=== PATIENT | female | born 1980 | race African-American/Black ===

== ENCOUNTER 2016-10-15 19:48 | Emergency (ER) | payer SELFPAY ==
--- NOTE | 2016-10-15 20:40 | ER Document Report ---
ED General - General Chief Complaint: Facial Droop Stated Complaint: FACIAL PAIN Time Seen by Provider: 10/15/16 20:25 Mode of Arrival: Ambulatory Information source: Patient Notes: This is a 35-year-old female with no medical problems who presents to the emergency room with a left facial droop. The patient states that she noticed some left eye irritation last night. She states she was talking with her friends and they noticed a left facial droop earlier today. Patient denies any arm weakness. She denies any recent febrile illnesses. She denies any camping or tick exposure. She denies any rash. Family history: No history of early strokes, blood clots. Social history: No drugs, patient does smoke 1 pack in 3 days (cigarettes). Medications: None, no control TRAVEL OUTSIDE OF THE [place] IN LAST 30 DAYS: No - HPI Onset: Just prior to arrival Onset/Duration: Sudden Quality of pain: No pain Severity: None Pain Level: Denies Associated symptoms: denies: Chest pain, Fever, Shortness of breath Exacerbated by: Denies Relieved by: Denies Similar symptoms previously: No Recently seen / treated by doctor: No - Related Data Allergies/Adverse Reactions: No Known Allergies Allergy (Verified 10/15/16 19:53) Past Medical History - General Information source: Patient - Social History Smoking Status: Current Every Day Smoker Cigarette use (# per day): Yes - Half pack per day Chew tobacco use (# tins/day): No Frequency of alcohol use: None Drug Abuse: None Lives with: Family Family History: Reviewed & Not Pertinent Patient has suicidal ideation: No Patient has homicidal ideation: No - Medical History Medical History: Negative Renal/ Medical History: Denies: Hx Peritoneal Dialysis Surgical Hx: Negative Review of Systems - Review of Systems Constitutional: denies: Chills, Fever EENT: No symptoms reported Cardiovascular: No symptoms reported Respiratory: No symptoms reported Gastrointestinal: No symptoms reported Genitourinary: No symptoms reported Female Genitourinary: No symptoms reported Musculoskeletal: No symptoms reported Skin: No symptoms reported Hematologic/Lymphatic: No symptoms reported Neurological/Psychological: See HPI Physical Exam - Vital signs Vitals: Temp Pulse Resp BP Pulse Ox 99.0 F 103 H 20 168/100 H 99 10/15/16 19:53 10/15/16 19:53 10/15/16 19:53 10/15/16 19:53 10/15/16 19:53 Notes: Physical exam: GENERAL: 35-year-old female, alert and oriented 3, no acute distress HEAD: Atraumatic, normocephalic. EYES: Pupils equal round and reactive to light, extraocular movements intact, sclera anicteric, conjunctiva are normal. ENT: TMs normal, nares patent, oropharynx clear without exudates. Moist mucous membranes. NECK: Normal range of motion, supple without lymphadenopathy or JVD. LUNGS: Breath sounds clear to auscultation bilaterally and equal. No wheezes rales or rhonchi. HEART: Regular rate and rhythm without murmurs, rubs or gallops. ABDOMEN: Soft, normoactive bowel sounds. No tenderness to palpation. No guarding, no rebound. No masses appreciated. EXTREMITIES: Normal range of motion, no pitting or edema. No clubbing or cyanosis. NEUROLOGICAL: Patient does have left facial weakness that appears to involve the entire left side of her face. No difficulty swallowing. Motor upper extremities 5/5, motor lower extremities 5/5, cerebellar (finger to nose) good, reflexes symmetrical, plantars downgoing, Romberg negative. PSYCH: Normal mood, normal affect. SKIN: Warm, Dry, normal turgor, no rashes or lesions noted. Course - Re-evaluation Re-evalutation: 10/15/16 20:42 Patient symptoms I believe are peripheral. However, her blood pressure is significantly elevated and she does smoke cigarettes. We will obtain an MRI of the brain. Otherwise, I sent a Lyme titer, and I will put her on prednisone and acyclovir. - Vital Signs Vital signs: Temp Pulse Resp BP Pulse Ox 98.4 F 96 19 142/88 H 97 10/15/16 22:47 10/15/16 22:47 10/15/16 22:47 10/15/16 22:47 10/15/16 22:47 Discharge - Discharge Clinical Impression: Ferrell's palsy Condition: Stable Disposition: HOME, SELF-CARE Instructions: Ferrell's Palsy ([facility]) Additional Instructions: Recommendations: As we discussed, your blood pressure was elevated today. I recommend that you have it rechecked in the next week or 2. The brain MRI was good: There is no evidence of strokes. Your test was negative See the instruction sheet on Ferrell's palsy. I prescribed 2 medicines: 1 is a steroid, one is an antiviral medicine. We did send a Lyme titer (a blood test to detect any exposure to Lyme's disease) : We will call you if the titer is positive. Try and keep the left eye moist: Use moisturizer/lubricant I left the number for the [facility]: This is a free medical clinic affiliated with the [facility]. You can have your blood pressure rechecked here. Return to the emergency room for any headache, worsening weakness of the face, any arm weakness or any concerns or getting worse. Prescriptions: Acyclovir [Acyclovir 400 mg Tablet] 400 mg PO 5XD #35 tablet Prednisone [Deltasone 20 mg Tablet] 3 tab PO DAILY 7 Days #21 tablet Forms: Elevated Blood Pressure Referrals: [facility] [Provider Group] - Follow up as needed (This is the number of the free medical clinic affiliated with the [facility])
[2016-10-15] MEDS ORDERED: LORAZEPAM 1 MG TABLET PO ONE (20:57)
--- NOTE | 2016-10-15 21:55 | RADIOLOGY REPORT (SQ) ---
EXAM DESCRIPTION: MRI HEAD WITHOUT COMPLETED DATE/TIME: 10/15/2016 9:28 pm REASON FOR STUDY: left facial weak, r/o cva COMPARISON: None. TECHNIQUE: Multiplanar imaging includes non-contrasted T1, T2, FLAIR, and diffusion with ADC map seq uences. Images stored on PACS. LIMITATIONS: None. FINDINGS: ANATOMY: No anomalies. Normal vascular flow voids. Pituitary fossa normal. CSF SPACES: Normal in size and contour. No hemorrhage. CEREBRUM: Sulci and gyri normal in size and contour. Normal white matter signal on FLAIR imaging. No evidence of hemorrhage, mass, or extraaxial fluid collection. POSTERIOR FOSSA: No signal alteration. No hemorrhage. No edema, masses or mass effect. Internal jose m tory canals, cerebello-pontine angles, mastoids normal. DIFFUSION IMAGING: Negative for acute or sub-acute infarction. ORBITS: No masses. Globes normal. PARANASAL SINUSES: Left maxillary sinus mucosal thickening. OTHER: No other significant finding. IMPRESSION: Negative for acute or sub-acute infarction.Age-appropriate exam of the brain.Left maxill aleisha sinus mucosal thickening. EVIDENCE OF ACUTE STROKE: NO. TECHNICAL DOCUMENTATION: JOB ID: [id number] [employer]- All Rights Reserved
[2016-10-15 23:29] VITALS: BP 142/88
[2016-10-19 12:52] LABS: LYME DISEASE IGG AND IGM AB <0.91 ISR (0.00-0.90)
== END 2016-10-15 22:45 | disposition home or self-care (01) ==
LOC: ER 19:48
DX: G51.0 Bell's palsy (principal); R29.810 Facial weakness; F17.210 Nicotine dependence, cigarettes, uncomplicated
CPT/HCPCS: 36415; 70551; 84702; 86617; 86618; 99284

== ENCOUNTER 2017-09-28 20:37 | Inpatient (IN) | payer SELFPAY ==
[2017-09-28] MEDS ORDERED: NORMAL SALINE 1000 ML 1,000 ML IV ONE ×4 (21:12→23:54)
[2017-09-28] MEDS ORDERED: MORPHINE SULFATE 10 MG/ML INJ IV ONE (21:14)
[2017-09-28] MEDS ORDERED: ONDANSETRON HCL INJ/PF 4 MG/2 ML SDV IV ONE (21:14)
[2017-09-28 21:37] LABS: VENOUS BLOOD BASE EXCESS -0.3 mmol/L; VENOUS BLOOD HCO3 23.8 mmol/L (20-32); VENOUS BLOOD PCO2 37.3 mmHg (35-63); VENOUS BLOOD PH 7.42 (7.30-7.42)
[2017-09-28 21:42] LABS: INTERNATIONAL RATION (INR) 1.32
[2017-09-28 21:43] LABS: PARTIAL THROMBOPLASTIN TIME 35.1 SEC (23.5-35.8)
[2017-09-28 21:45] LABS: HEMATOCRIT 36.9 % (36.0-47.0); MEAN CORPUSCULAR HEMOGLOBIN 23.8 pg (27.0-33.4); MEAN CORPUSCULAR HGB CONC 32.4 g/dL (32.0-36.0); MEAN CORPUSCULAR VOLUME 73 fl (80-97); PLATELET COUNT 256 10^3/uL (150-450); RED BLOOD COUNT 5.03 10^6/uL (3.72-5.28); RED CELL DISTRIBUTION WIDTH 17.5 % (11.5-14.0); WHITE BLOOD COUNT 20.8 10^3/uL (4.0-10.5)
--- NOTE | 2017-09-28 21:47 | EKG REPORT ---
SEVERITY:- BORDERLINE ECG - SINUS TACHYCARDIA INFERIOR Q WAVES, PROBABLY NORMAL VARIATION : Confirmed by: Melba Rosado 28-Sep-2017 21:46:00
[2017-09-28 21:55] LABS: APPEARANCE,URINE CLOUDY; BILIRUBIN,URINE NEGATIVE (NEGATIVE); CALCIUM OXALATE CRYSTALS,URINE FEW /HPF; GLUCOSE, URINE >=500 mg/dL (NEGATIVE); KETONES,URINE 20 mg/dL (NEGATIVE); LEUKOCYTE ESTERASE,URINE LARGE (NEGATIVE); NITRITE,URINE NEGATIVE (NEGATIVE); PROTEIN,URINE 100 mg/dL (NEGATIVE); URINE SPECIFIC GRAVITY 1.021; UROBILINOGEN,URINE NEGATIVE mg/dL (<2.0)
[2017-09-28 21:57] LABS: COLOR,URINE YELLOW
[2017-09-28 22:02] LABS: ALANINE AMINOTRANSFERASE 28 U/L (9-52); ALBUMIN 3.4 g/dL (3.5-5.0); ALKALINE PHOSPHATASE 100 U/L (38-126); ANION GAP 16 (5-19); ASPARTATE AMINO TRANSFERASE 28 U/L (14-36); BILIRUBIN,DIRECT 0.7 mg/dL (0.0-0.4); BILIRUBIN,TOTAL 1.1 mg/dL (0.2-1.3); BLOOD UREA NITROGEN 14 mg/dL (7-20); CALCIUM 8.8 mg/dL (8.4-10.2); CARBON DIOXIDE 22 mmol/L (22-30); CHLORIDE 92 mmol/L (98-107); GLUCOSE 322 mg/dL (75-110); POTASSIUM 4.2 mmol/L (3.6-5.0); TOTAL PROTEIN 6.8 g/dL (6.3-8.2)
[2017-09-28 22:03] LABS: LIPASE < 10.0 U/L (23-300)
[2017-09-28 22:21] LABS: ABSOLUTE MONOCYTES # (MANUAL) 0.8 10^3/uL (0.1-1.4); ABSOLUTE NEUTROPHILS# (MANUAL) 18.9 10^3/uL (1.7-8.2); BASOPHILS % (MANUAL) 0 % (0-2); EOSINOPHILS % (MANUAL) 0 % (0-6); LYMPHOCYTES % (MANUAL) 4 % (13-45); MONOCYTES % (MANUAL) 4 % (3-13); SEGMENTED NEUTROPHILS % (MAN) 80 % (42-78); TOTAL CELLS COUNTED 100
[2017-09-28 22:22] LABS: PLATELET COMMENT ADEQUATE; TOXIC GRANULATION 2+; TOXIC VACUOLATION PRESENT
[2017-09-28 22:24] LABS: BAND NEUTROPHILS % (MANUAL) 11 % (3-5)
[2017-09-28] MEDS ORDERED: PIPERACILLIN/TAZOBACTAM 3.375 GM VIAL IV ONE (22:28)
--- NOTE | 2017-09-28 23:05 | RADIOLOGY REPORT (SQ) ---
EXAM DESCRIPTION: CT ABDOMEN PELVIS WITH IV CONTRAST COMPLETED DATE/TME: 09/28/2017 22:15 CLINICAL HISTORY: 36 years Female, Abdominal Pain Comparison: None. Technique: IV contrast. Coronal and sagittal reformat. This exam was performed according to our departmental dose-optimization program, which includes automated exposure control, adjustment of the mA and/or kV according to patient size and/or use of iterative reconstruction technique. [facility]: Dose Right [facility]: CareDose [facility]: Dose Right [facility]: Teradose 4D [facility]: [employer] LIMITATIONS: None Findings: 0.4 x 0.3 cm right distal ureteral stone within 3 cm of the right ureterovesicular junction, mild right hydronephrosis/hydroureter. Patchy enhancement of the right renal parenchyma, mild right perinephric fat stranding, small of fluid extends inferiorly along Gerota's fascia. Mild retroperitoneal lymphadenopathy. Normal appendix. Mild hepatic steatosis. Fluid-filled right colon, nonspecific. Inferior thorax, liver, gallbladder, pancreas, spleen, adrenals, left kidney, gastrointestinal tract, pelvic organs, vasculature, and musculoskeleton appear otherwise unremarkable. IMPRESSION: 1. A 0.4 cm right distal ureteral stone with low-grade obstruction. 2. Right pyelonephritis pattern. Differential diagnosis includes malignancy such as lymphoma. Recommend contrast renal CT surveillance including at 7-12 weeks following initiation of clinically warranted therapy.
[2017-09-28] MEDS ORDERED: PIPERACILLIN/TAZOBACTAM 4.5 GM VIAL IV ONE (23:36)
--- NOTE | 2017-09-29 00:13 | ER Document Report ---
ED GI/ - General Chief Complaint: Abdominal Pain Stated Complaint: STOMACH PAIN Time Seen by Provider: 09/28/17 21:06 Mode of Arrival: Ambulatory Information source: Patient TRAVEL OUTSIDE OF THE [place] IN LAST 30 DAYS: No - HPI Patient complains to provider of: Abdominal pain, Flank pain, Vomiting Onset: This afternoon Timing/Duration: Sudden Quality of pain: Sharp Severity at maximum: Severe Severity in ED: Severe Pain Level: 5 Location: Right flank Vaginal bleeding (Compared to normal period): None OB ultrasound done: No vitamins taken: No Sexual history: Active Associated symptoms: Nausea, Vomiting Exacerbated by: Denies Relieved by: Denies Similar symptoms previously: No Recently seen / treated by doctor: No - Related Data Allergies/Adverse Reactions: No Known Allergies Allergy (Verified 10/15/16 19:53) Past Medical History - Social History Smoking Status: Current Every Day Smoker Frequency of alcohol use: Social Drug Abuse: None Family History: Reviewed & Not Pertinent Patient has suicidal ideation: No Patient has homicidal ideation: No - Past Medical History Cardiac Medical History: Reports: Hx Hypertension - takes no meds Renal/ Medical History: Denies: Hx Peritoneal Dialysis Review of Systems - Review of Systems Constitutional: Chills, Fever EENT: No symptoms reported Cardiovascular: No symptoms reported Respiratory: No symptoms reported Gastrointestinal: Abdominal pain, Nausea, Vomiting Genitourinary: No symptoms reported Female Genitourinary: No symptoms reported Musculoskeletal: No symptoms reported Skin: No symptoms reported Hematologic/Lymphatic: No symptoms reported Neurological/Psychological: No symptoms reported -: Yes All other systems reviewed and negative Physical Exam - Vital signs Vitals: Temp Pulse Resp BP Pulse Ox 99.9 F 144 H 20 140/83 H 97 09/28/17 20:45 09/28/17 20:45 09/28/17 20:45 09/28/17 20:45 09/28/17 20:45 - General General appearance: Alert In distress: Moderate - HEENT Head: Normocephalic, Atraumatic Eyes: Normal Pupils: PERRL - Respiratory Respiratory status: No respiratory distress Chest status: Nontender Breath sounds: Normal Chest palpation: Normal - Cardiovascular Rhythm: Tachycardia Heart sounds: Normal auscultation Murmur: No - Abdominal Inspection: Normal Distension: No distension Bowel sounds: Normal Tenderness: Tender, Guarding. No: Rebound Organomegaly: No organomegaly - Back Back: Normal, Nontender - Extremities General upper extremity: Normal inspection, Nontender, Normal color, Normal ROM , Normal temperature General lower extremity: Normal inspection, Nontender, Normal color, Normal ROM , Normal temperature, Normal weight bearing. No: Mena's sign - Neurological Neuro grossly intact: Yes Cognition: Normal Orientation: AAOx4 Papa Coma Scale Eye Opening: Spontaneous Papa Coma Scale Verbal: Oriented [place] Coma Scale Motor: Obeys Commands [place] Coma Scale Total: 15 Speech: Normal Motor strength normal: LUE, RUE, LLE, RLE Sensory: Normal - Psychological Associated symptoms: Normal affect - Skin Skin Temperature: Warm Skin Moisture: Dry Skin Color: Normal Course - Vital Signs Vital signs: Temp Pulse Resp BP Pulse Ox 100.9 F H 144 H 22 H 139/77 H 97 09/28/17 22:32 09/28/17 20:45 09/28/17 23:42 09/28/17 23:42 09/28/17 23:42 - Laboratory Result Diagrams: 09/28/17 21:08 09/28/17 21:08 Laboratory results interpreted by me: 09/28/17 09/28/17 09/28/17 21:08 21:08 21:08 WBC 20.8 H MCV 73 L MCH 23.8 L RDW 17.5 H Seg Neuts % (Manual) 80 H Band Neutrophils % 11 H Lymphocytes % (Manual) 4 L Abs Neuts (Manual) 18.9 H PT 17.0 H Sodium 130.0 L Chloride 92 L Glucose 322 H Lactic Acid Direct Bilirubin 0.7 H Albumin 3.4 L Lipase < 10.0 L Urine Protein Urine Glucose (UA) Urine Ketones Urine Blood Ur Leukocyte Esterase 09/28/17 09/28/17 21:08 21:32 WBC MCV MCH RDW Seg Neuts % (Manual) Band Neutrophils % Lymphocytes % (Manual) Abs Neuts (Manual) PT Sodium Chloride Glucose Lactic Acid 2.6 H Direct Bilirubin Albumin Lipase Urine Protein 100 H Urine Glucose (UA) >=500 H Urine Ketones 20 H Urine Blood MODERATE H Ur Leukocyte Esterase LARGE H - Diagnostic Test Radiology reviewed: Image reviewed, Reports reviewed - Transfer of Care Notes: 09/29/17 00:11 I consulted the urologist resolution rep Dr Sandra Le. He wants patient admitted by the hospitalist he will be taking the patient to the OR immediately for surgical intervention. Patient care was discussed with the hospitalist resolution rep Dr Silva. He will admit patient for further evaluation and management. Critical Care Note - Critical Care Note Total time excluding time spent on procedures (mins): 55 Discharge - Discharge Clinical Impression: Kidney stone on right side, Flank pain, acute, Tachycardia Sepsis Qualifiers: Sepsis type: sepsis due to unspecified organism Qualified Code(s): A41.9 - Sepsis, unspecified organism UTI (urinary tract infection) Qualifiers: Urinary tract infection type: acute cystitis Hematuria presence: without hematuria Qualified Code(s): N30.00 - Acute cystitis without hematuria Leukocytosis Qualifiers: Leukocytosis type: bandemia Qualified Code(s): D72.825 - Bandemia Nausea and vomiting Qualifiers: Vomiting type: unspecified Vomiting Intractability: intractable Qualified Code( s): R11.2 - Nausea with vomiting, unspecified Fever Qualifiers: Fever type: unspecified Qualified Code(s): R50.9 - Fever, unspecified Disposition: ADMITTED INPATIENT Admitting Provider: Hospitalist Unit Admitted: [facility]
[2017-09-29] MEDS ORDERED: ACETAMINOPHEN 650 MG SUPP.RECT PR ONE (00:34)
[2017-09-29] MEDS ORDERED: ACETAMINOPHEN 325 MG SUPP.RECT PR ONE (00:34)
[2017-09-29] MEDS ORDERED: MIDAZOLAM 2 MG/2 ML INJ ONE (00:39)
[2017-09-29] MEDS ORDERED: FENTANYL CITRATE INJ/PF 100 MCG/2 ML AMPUL ONE (00:39)
[2017-09-29] MEDS ORDERED: PROPOFOL INJ 200 MG/20 ML VIAL IV ONE (00:40)
[2017-09-29] MEDS ORDERED: ACETAMINOPHEN 1,000 MG/100 ML RTUPB IV ONE (00:40)
[2017-09-29] MEDS ORDERED: LIDOCAINE 2% INJ-PF (20 MG/ML) 10 ML AMPUL ONE (00:44)
[2017-09-29] MEDS ORDERED: IPRATROPIUM/ALBUTEROL 0.5-2.5 MG/3 ML AMPUL NEB PRN (00:53)
[2017-09-29] MEDS ORDERED: ACETAMINOPHEN 325 MG TABLET PO PRN (00:53)
[2017-09-29] MEDS ORDERED: ONDANSETRON HCL INJ/PF 4 MG/2 ML SDV IV PRN ×2 (00:53→01:46)
[2017-09-29] MEDS ORDERED: CEFTRIAXONE 1 GM/D5W RTU 1 GM/50 ML RTUPB IV SCH ×2 (01:00→18:00)
[2017-09-29] MEDS ORDERED: PROMETHAZINE HCL INJ 25 MG/1 ML VIAL IV PRN ×2 (01:46)
[2017-09-29] MEDS ORDERED: FENTANYL CITRATE INJ/PF 100 MCG/2 ML AMPUL IV PRN ×3 (01:46)
[2017-09-29] MEDS ORDERED: DIPHENHYDRAMINE HCL 50 MG/ML VIAL IV PRN (01:46)
--- NOTE | 2017-09-29 01:46 | Operative Report ---
Operative Report DATE OF SURGERY: 09/29/17 PREOPERATIVE DIAGNOSIS: obstructed right kidney by stone POSTOPERATIVE DIAGNOSIS: same OPERATION: cystoscopy and right retrograde and insertion of right double j catheter SURGEON: ALEJANDRO GARCIA ANESTHESIA: GA TISSUE REMOVED OR ALTERED: urine for culture COMPLICATIONS: none ESTIMATED BLOOD LOSS: 0 INTRAOPERATIVE FINDINGS: pus and purulent material was coming from the right ureteral orifice on insertion of the double j PROCEDURE: with the patient in the lithotomy position after the induction of general anesthesia, proper scrubbimg and draping was done. # 21 cystoscope was used, bladder was inspected then right ureteral orifice was identified and guide wire was inserted then # 5 ureteral catheter and contrast was injected, then 3 4.8- 26 double j was placed into the renal pelvis, under flousoscopy. pus was gushing from the right orifice though out the procedure. patient tolerated procedure and left the OR to ICU
[2017-09-29 03:22] LABS: HEMATOCRIT 34.2 % (36.0-47.0); HEMOGLOBIN 11.1 g/dL (12.0-15.5); MEAN CORPUSCULAR HEMOGLOBIN 23.8 pg (27.0-33.4); MEAN CORPUSCULAR HGB CONC 32.6 g/dL (32.0-36.0); MEAN CORPUSCULAR VOLUME 73 fl (80-97); PLATELET COUNT 210 10^3/uL (150-450); RED BLOOD COUNT 4.67 10^6/uL (3.72-5.28); RED CELL DISTRIBUTION WIDTH 17.8 % (11.5-14.0)
[2017-09-29 03:49] LABS: ABSOLUTE LYMPHOCYTES# (MANUAL) 0.4 10^3/uL (0.5-4.7); ABSOLUTE MONOCYTES # (MANUAL) 0.8 10^3/uL (0.1-1.4); ABSOLUTE NEUTROPHILS# (MANUAL) 18.8 10^3/uL (1.7-8.2); ANISOCYTOSIS 1+; BAND NEUTROPHILS % (MANUAL) 6 % (3-5); BASOPHILS % (MANUAL) 0 % (0-2); BURR CELLS 1+; EOSINOPHILS % (MANUAL) 0 % (0-6); LYMPHOCYTES % (MANUAL) 2 % (13-45); MONOCYTES % (MANUAL) 4 % (3-13); OVALOCYTES 1+; POIKILOCYTOSIS 1+; SEGMENTED NEUTROPHILS % (MAN) 88 % (42-78); TOTAL CELLS COUNTED 100; TOXIC GRANULATION SLIGHT; TOXIC VACUOLATION PRESENT
[2017-09-29 03:50] LABS: PLATELET COMMENT ADEQUATE; PLATELET LARGE PRESENT; POLYCHROMASIA SLIGHT; SCHISTOCYTES SLIGHT
[2017-09-29 04:39] LABS: INTERNATIONAL RATION (INR) 1.29; PROTHROMBIN TIME 16.7 SEC (11.4-15.4)
[2017-09-29 04:40] LABS: PARTIAL THROMBOPLASTIN TIME 38.2 SEC (23.5-35.8)
[2017-09-29] MEDS ORDERED: CEFTRIAXONE 1 GM/D5W RTU 1 GM/50 ML RTUPB IV ONE (05:00)
[2017-09-29] MEDS: NORMAL SALINE 1000 ML 1,000 ML IV PRN ×2 (06:47→09:15)
--- NOTE | 2017-09-29 07:18 | PDOC H&P ---
History of Present Illness Admission Date/PCP: 09/29/17 00:32 None. Patient complains of: Right lower quadrant pain. Fever History of Present Illness: MELINA CARDENAS is a 36 year old female with past medical history of obesity who does not see PCP presents to the emergency room with fever and right lower quadrant abdominal pain for 2 days. Patient reports dysuria without hematuria. Patient denies nausea vomiting or chest pain or shortness of breath. Patient denies recent sick contacts or travel. On arrival to emergency room she was febrile with tachycardia however blood pressure was stable. Her laboratory workup showed white count of 20,000. Her blood glucose was 322. Lactic acid is 2.6. Urinalysis shows UTI. CT abdomen done which showed right distal ureteric stone with obstruction and hydronephrosis along with changes of pyelonephritis. Patient was taken to the OR by urologist and had ureteric stent placed. Patient was referred to hospital service for admission. Past Medical History Cardiac Medical History: Reports: Hypertension - takes no meds Social History Information Source: Patient Smoking Status: Current Every Day Smoker Frequency of Alcohol Use: None Hx Recreational Drug Use: No Family History Family History: Reviewed & Not Pertinent Parental Family History Reviewed: No Children Family History Reviewed: No Sibling(s) Family History Reviewed.: No Medication/Allergy Home Medications: Acyclovir [Acyclovir 400 mg Tablet] 400 mg PO 5XD #35 tablet 10/15/16 Prednisone [Deltasone 20 mg Tablet] 3 tab PO DAILY 7 Days #21 tablet 10/15/16 Allergies/Adverse Reactions: No Known Allergies Allergy (Verified 10/15/16 19:53) Review of Systems All systems: reviewed and no additional remarkable complaints except as stated Physical Exam Vital Signs: Temp Pulse Resp BP Pulse Ox 100.4 F 122 H 30 H 123/75 96 09/29/17 03:44 09/29/17 03:44 09/29/17 03:44 09/29/17 03:44 09/29/17 03:44 Intake & Output 09/27/17 09/28/17 09/29/17 06:59 06:59 06:59 Intake Total 1300 Output Total 0 Balance 1300 Weight 353 lb 9.943 oz General appearance: PRESENT: no acute distress, cooperative, obese, well- developed, well-nourished Head exam: PRESENT: atraumatic, normocephalic Eye exam: ABSENT: conjunctival injection, conjunctiva pink, conjunctiva pale, EOMI, nystagmus, periorbital swelling, PERRLA, scleral icterus, other Ear exam: ABSENT: bleeding, drainage, normal external ear exam, TM's normal bilaterally, other Mouth exam: PRESENT: dry mucosa Neck exam: ABSENT: carotid bruit, JVD, tenderness Respiratory exam: PRESENT: clear to auscultation alma. ABSENT: rhonchi, wheezes Cardiovascular exam: PRESENT: RRR, +S1, +S2, tachycardia. ABSENT: gallop, rubs GI/Abdominal exam: PRESENT: normal bowel sounds, soft, tenderness - Her right lower quadrant tenderness and right flank tenderness. ABSENT: organolmegaly Rectal exam: ABSENT: deferred, black stool, bloody stool, decreased rectal tone , fecal impaction, heme (-) stool, heme (+) stool, hemorrhoids, laceration, mass , normal inspection, normal prostate, normal rectal tone, prostate enlargement, prostate tenderness, tenderness, other Gentrourinary exam: ABSENT: ecchymosis, erythema, lacerations, lesions, scrotal swelling, testicular tenderness, urethral discharge, indwelling catheter, other Extremities exam: ABSENT: calf tenderness, clubbing, full ROM, joint swelling, pedal edema, tenderness, +1 edema, +2 edema, other Musculoskeletal exam: PRESENT: ambulatory Neurological exam: PRESENT: alert, altered, awake, oriented to person, oriented to place, oriented to time, oriented to situation, reflexes normal Skin exam: ABSENT: rash Results Laboratory Results: 09/29/17 03:08 09/29/17 09/29/17 03:08 03:08 WBC 20.0 H RBC 4.67 Hgb 11.1 L Hct 34.2 L MCV 73 L MCH 23.8 L MCHC 32.6 RDW 17.8 H Plt Count 210 Seg Neutrophils % Not Reportable Lymphocytes % Not Reportable Monocytes % Not Reportable Eosinophils % Not Reportable Basophils % Not Reportable Absolute Neutrophils Not Reportable Absolute Lymphocytes Not Reportable Absolute Monocytes Not Reportable Absolute Eosinophils Not Reportable Absolute Basophils Not Reportable Lactic Acid 1.2 Impressions: Abdomen/Pelvis CT 09/28/17 22:15 IMPRESSION: 1. A 0.4 cm right distal ureteral stone with low-grade obstruction. 2. Right pyelonephritis pattern. Differential diagnosis includes malignancy such as lymphoma. Recommend contrast renal CT surveillance including at 7-12 weeks following initiation of clinically warranted therapy. Status: Image reviewed by me Assessment & Plan - Diagnosis (1) Sepsis Qualifiers: Sepsis type: sepsis due to unspecified organism Qualified Code(s): A41.9 - Sepsis, unspecified organism Is this a current diagnosis for this admission?: Yes Plan: Patient meets criteria for sepsis due to tachycardia, elevated lactic acid, fever and pyelonephritis. Patient's blood pressure stable. We will continue broad-spectrum antibiotic and follow blood cultures and urine culture. (2) Pyelonephritis Is this a current diagnosis for this admission?: Yes Plan: Right-sided pyelonephritis with obstructive uropathy and hydronephrosis. Status post ureteric stent placed. Follow-up urine culture and continue ceftriaxone. (3) Hydronephrosis due to obstruction of ureter Is this a current diagnosis for this admission?: Yes Plan: Status post ureteric catheter placement. Will follow up with urologist (4) Hyperglycemia Is this a current diagnosis for this admission?: Yes Plan: No prior history of diabetes. Will check hemoglobin A1c and put patient on sliding scale. - Time Time Spent: 50 to 70 Minutes - Inpatient Certification Based on my medical assessment, after consideration of the patient's comorbidities, presenting symptoms, or acuity I expect that the services needed warrant INPATIENT care.: Yes I certify that my determination is in accordance with my understanding of Medicare's requirements for reasonable and necessary INPATIENT services [42 CFR 412.3e].: Yes Medical Necessity: Need For IV Fluids, Need for IV Antibiotics
--- NOTE | 2017-09-29 08:54 | RADIOLOGY REPORT (SQ) ---
EXAM DESCRIPTION: PYELOGRAM RETROGRADE COMPLETED DATE/TIME: 09/29/2017 1:33 am REASON FOR STUDY: RT KIDNEY INFECTION COMPARISON: CT abdomen pelvis 09/28/2017 FLUOROSCOPY TIME: 24 seconds 2 digital radiographic images saved to PACS. TECHNIQUE: Intra-operative images acquired during surgical procedure to evaluate progress. NUMBER OF IMAGES: 2 digital radiographic images LIMITATIONS: None. FINDINGS: 2 digital radiographic images were submitted during right-sided retrograde injection. The se demonstrate no obstructive ureteral calculus. Faintly radiopaque double-J stent is present with t he proximal end of the right renal pelvis. Please see the operative report for further details. IMPRESSION: Intra procedural imaging and fluoro COMMENT: Quality ID [id number]: Final reports for procedures using fluoroscopy that document radiation exp osure indices, or exposure time and number of fluorographic images (if radiation exposure indices are not available) Please consult full operative report of the attending physician for description of the procedure. TECHNICAL DOCUMENTATION: JOB ID: [id number] [employer]- All Rights Reserved Reading location - IP/workstation name: [email or web address]
[2017-09-29] MEDS: ENOXAPARIN SODIUM INJ 40 MG/0.4 ML DISP.SYRIN SUBCUT SCH (09:14)
--- NOTE | 2017-09-29 09:40 | PDOC PROGRESS REPORT ---
Subjective Progress Note for:: 09/29/17 Reason For Visit: PYELONEPHRITIS,SEPSIS Physical Exam Vital Signs: Temp Pulse Resp BP Pulse Ox 100.4 F 122 H 17 124/71 100 09/29/17 03:44 09/29/17 03:44 09/29/17 07:32 09/29/17 07:32 09/29/17 07:32 Intake & Output 09/28/17 09/29/17 09/30/17 06:59 06:59 06:59 Intake Total 1300 370 Output Total 0 Balance 1300 370 Weight 160.4 kg Results Laboratory Results: 09/29/17 03:08 09/29/17 09/29/17 03:08 03:08 WBC 20.0 H RBC 4.67 Hgb 11.1 L Hct 34.2 L MCV 73 L MCH 23.8 L MCHC 32.6 RDW 17.8 H Plt Count 210 Seg Neutrophils % Not Reportable Lymphocytes % Not Reportable Monocytes % Not Reportable Eosinophils % Not Reportable Basophils % Not Reportable Absolute Neutrophils Not Reportable Absolute Lymphocytes Not Reportable Absolute Monocytes Not Reportable Absolute Eosinophils Not Reportable Absolute Basophils Not Reportable Lactic Acid 1.2 Impressions: Abdomen/Pelvis CT 09/28/17 22:15 IMPRESSION: 1. A 0.4 cm right distal ureteral stone with low-grade obstruction. 2. Right pyelonephritis pattern. Differential diagnosis includes malignancy such as lymphoma. Recommend contrast renal CT surveillance including at 7-12 weeks following initiation of clinically warranted therapy. Retrograde Pyelogram 09/29/17 00:00 IMPRESSION: Intra procedural imaging and fluoro Assessment & Plan - Plan Summary Plan Summary: she is awake, no mpre septic, doing well,
[2017-09-29] MEDS: OXYCODONE-ACETAMINOPHEN 5-325 MG TABLET PO PRN ×2 (12:42→19:06)
[2017-09-29 14:47] LABS: PATH REVIEW PATHOLOGIST REVIEWED
[2017-09-29] MEDS: CEFTRIAXONE SODIUM 1,000 MG in DEXTROSE 5%-WATER 50 ML IV SCH (19:04)
[2017-09-29] MEDS ORDERED: ONDANSETRON HCL INJ/PF 4 MG/2 ML SDV ONE (19:10)
[2017-09-29] MEDS ORDERED: METOCLOPRAMIDE HCL INJ/PF 10 MG/2 ML SDV ONE (19:10)
[2017-09-29] MEDS ORDERED: SUCCINYLCHOLINE CHLORIDE INJ 200 MG/10 ML VIAL ONE (19:10)
[2017-09-29] MEDS ORDERED: DEXAMETHASONE SOD PHOSPHATE INJ 4 MG/1 ML VIAL ONE (19:10)
[2017-09-30] MEDS: OXYCODONE-ACETAMINOPHEN 5-325 MG TABLET PO PRN ×4 (02:35→22:40)
[2017-09-30 04:40] LABS: HEMOGLOBIN 10.3 g/dL (12.0-15.5); MEAN CORPUSCULAR HEMOGLOBIN 23.6 pg (27.0-33.4); MEAN CORPUSCULAR HGB CONC 32.2 g/dL (32.0-36.0); MEAN CORPUSCULAR VOLUME 73 fl (80-97); PLATELET COUNT 176 10^3/uL (150-450); RED BLOOD COUNT 4.35 10^6/uL (3.72-5.28); RED CELL DISTRIBUTION WIDTH 17.8 % (11.5-14.0); WHITE BLOOD COUNT 18.2 10^3/uL (4.0-10.5)
[2017-09-30 04:47] LABS: ALANINE AMINOTRANSFERASE 32 U/L (9-52); ALKALINE PHOSPHATASE 106 U/L (38-126); ANION GAP 13 (5-19); ASPARTATE AMINO TRANSFERASE 23 U/L (14-36); BILIRUBIN,DIRECT 0.4 mg/dL (0.0-0.4); BILIRUBIN,TOTAL 0.7 mg/dL (0.2-1.3); BLOOD UREA NITROGEN 15 mg/dL (7-20); CALCIUM 7.8 mg/dL (8.4-10.2); CARBON DIOXIDE 23 mmol/L (22-30); CHLORIDE 99 mmol/L (98-107); GLUCOSE 288 mg/dL (75-110); POTASSIUM 3.9 mmol/L (3.6-5.0); SODIUM 134.5 mmol/L (137-145); TOTAL PROTEIN 6.2 g/dL (6.3-8.2)
[2017-09-30] MEDS: NORMAL SALINE 1000 ML 1,000 ML IV PRN ×3 (04:50→17:01)
[2017-09-30 05:00] LABS: ABSOLUTE LYMPHOCYTES# (MANUAL) 0.7 10^3/uL (0.5-4.7); ABSOLUTE MONOCYTES # (MANUAL) 1.1 10^3/uL (0.1-1.4); ABSOLUTE NEUTROPHILS# (MANUAL) 16.2 10^3/uL (1.7-8.2); BAND NEUTROPHILS % (MANUAL) 6 % (3-5); BASOPHILS % (MANUAL) 1 % (0-2); EOSINOPHILS % (MANUAL) 0 % (0-6); LYMPHOCYTES % (MANUAL) 4 % (13-45); MONOCYTES % (MANUAL) 6 % (3-13); SEGMENTED NEUTROPHILS % (MAN) 83 % (42-78); TOTAL CELLS COUNTED 100
[2017-09-30 05:01] LABS: BURR CELLS SLIGHT; OVALOCYTES SLIGHT; PLATELET COMMENT ADEQUATE; POLYCHROMASIA 1+; TOXIC VACUOLATION PRESENT
[2017-09-30] MEDS: CEFTRIAXONE SODIUM 1,000 MG in DEXTROSE 5%-WATER 50 ML IV SCH ×2 (05:46→17:02)
[2017-09-30] MEDS: INSULIN LISPRO 100 UNIT/ML 3 ML VIAL SUBCUT PRN ×3 (05:46→17:02)
[2017-09-30] MEDS: ENOXAPARIN SODIUM INJ 40 MG/0.4 ML DISP.SYRIN SUBCUT SCH (09:49)
--- NOTE | 2017-09-30 12:34 | PDOC PROGRESS REPORT ---
Subjective Progress Note for:: 09/30/17 Subjective:: Ms. Mart is a 36-year-old female who was admitted to the ICU for sepsis secondary to acute pyelonephritis. Patient was noted to have right-sided hydronephrosis secondary to a distal ureteral stone. She went for a right ureteral stent placement on 09/29. No acute event overnight. She is tolerating diet well. She has minimal right flank tenderness. No fever no chills. Reason For Visit: PYELONEPHRITIS,SEPSIS Physical Exam Vital Signs: Temp Pulse Resp BP Pulse Ox 98.4 F 98 16 121/68 100 09/30/17 08:00 09/30/17 08:00 09/30/17 08:00 09/30/17 08:00 09/30/17 08:00 Intake & Output 09/29/17 09/30/17 10/01/17 06:59 06:59 06:59 Intake Total 1300 4970 1000 Output Total 0 2300 Balance 1300 2670 1000 Weight 353 lb 9.943 oz 352 lb 4.779 oz General appearance: PRESENT: no acute distress, well-developed, well-nourished Head exam: PRESENT: atraumatic, normocephalic Eye exam: PRESENT: conjunctiva pink, EOMI, PERRLA. ABSENT: scleral icterus Neck exam: ABSENT: carotid bruit, JVD, lymphadenopathy, thyromegaly Respiratory exam: PRESENT: clear to auscultation alma. ABSENT: rales, rhonchi, wheezes Cardiovascular exam: PRESENT: RRR. ABSENT: diastolic murmur, rubs, systolic murmur Pulses: PRESENT: normal dorsalis pedis pul GI/Abdominal exam: PRESENT: normal bowel sounds, soft, tenderness - Minimal right Rectal exam: PRESENT: deferred - minimal right flank tenderness Extremities exam: PRESENT: full ROM. ABSENT: calf tenderness, clubbing, pedal edema Neurological exam: PRESENT: alert, awake, oriented to person, oriented to place , oriented to time, oriented to situation, CN II-XII grossly intact. ABSENT: motor sensory deficit Skin exam: PRESENT: dry, intact, warm. ABSENT: cyanosis, rash Results Laboratory Results: 09/30/17 03:55 09/30/17 03:55 09/30/17 09/30/17 03:55 03:55 WBC 18.2 H RBC 4.35 Hgb 10.3 L Hct 32.0 L MCV 73 L MCH 23.6 L MCHC 32.2 RDW 17.8 H Plt Count 176 Seg Neutrophils % Not Reportable Lymphocytes % Not Reportable Monocytes % Not Reportable Eosinophils % Not Reportable Basophils % Not Reportable Absolute Neutrophils Not Reportable Absolute Lymphocytes Not Reportable Absolute Monocytes Not Reportable Absolute Eosinophils Not Reportable Absolute Basophils Not Reportable Sodium 134.5 L Potassium 3.9 Chloride 99 Carbon Dioxide 23 Anion Gap 13 BUN 15 Creatinine 0.70 Est GFR ( Amer) > 60 Est GFR (Non-Af Amer) > 60 Glucose 288 H Calcium 7.8 L Total Bilirubin 0.7 AST 23 ALT 32 Alkaline Phosphatase 106 Total Protein 6.2 L Albumin 3.0 L Impressions: Abdomen/Pelvis CT 09/28/17 22:15 IMPRESSION: 1. A 0.4 cm right distal ureteral stone with low-grade obstruction. 2. Right pyelonephritis pattern. Differential diagnosis includes malignancy such as lymphoma. Recommend contrast renal CT surveillance including at 7-12 weeks following initiation of clinically warranted therapy. Retrograde Pyelogram 09/29/17 00:00 IMPRESSION: Intra procedural imaging and fluoro Assessment & Plan - Diagnosis (1) Sepsis Qualifiers: Sepsis type: sepsis due to unspecified organism Qualified Code(s): A41.9 - Sepsis, unspecified organism Is this a current diagnosis for this admission?: Yes Plan: Patient has sepsis secondary to acute pyelonephritis. Lactic acid has normalized. Urine culture grew Klebsiella which is sensitive to ceftriaxone. Continue subtracting for the moment. Blood culture initially grew gram- negative rods. Will await for final results. (2) Pyelonephritis Is this a current diagnosis for this admission?: Yes Plan: Continue IV antibiotics. WBC is slightly trending down. Patient's right flank tenderness is improving. (3) Hydronephrosis due to obstruction of ureter Is this a current diagnosis for this admission?: Yes Plan: Patient is status post right ureteral stent placement for distal ureteral stone. (4) Hyperglycemia Is this a current diagnosis for this admission?: Yes Plan: Patient does not have a previous diagnosis of diabetes mellitus. We will check an A1c. Continue sliding scale for now. Continue sugar checks. (5) Obesity Is this a current diagnosis for this admission?: Yes Plan: Patient has obesity secondary to excessive caloric intake. Counseled on weight loss and dietary modification. - Time Time Spent with patient: 25-34 minutes
--- NOTE | 2017-09-30 17:36 | RADIOLOGY REPORT (SQ) ---
EXAM DESCRIPTION: CHEST SINGLE VIEW COMPLETED DATE/TIME: 09/30/2017 5:24 pm REASON FOR STUDY: hypoxia COMPARISON: None. EXAM PARAMETERS: NUMBER OF VIEWS: One view. TECHNIQUE: Single frontal radiographic view of the chest acquired. RADIATION DOSE: NA LIMITATIONS: None. FINDINGS: LUNGS: Confluent opacity in the right medial lung base -cardiomediastinal silhouette, pos sible airspace disease. No significant pleural effusion. No pneumothorax. HEART AND VASCULAR STRUCTURES: Heart normal in size. Normal vasculature. BONES: No acute findings. HARDWARE: None in the chest. OTHER: No other significant finding. IMPRESSION: Confluent opacity in the right medial lung base -cardiomediastinal silhouette, possible airspace disease. Follow-up recommended. TECHNICAL DOCUMENTATION: JOB ID: [id number] [place]-72 2010 [employer]- All Rights Reserved Reading location - IP/workstation name: [employer]
[2017-09-30] MEDS ORDERED: INSULIN GLARGINE,HUM.REC.ANLOG 1,000 UNIT/10 ML UNIT SUBCUT SCH (22:00)
[2017-09-30] MEDS ORDERED: INSULIN GLARGINE,HUM.REC.ANLOG 300 UNIT/3 ML INSULN.PEN SUBCUT SCH (22:00)
[2017-09-30] MEDS: MAG HYDROX/AL HYDROX/SIMETH SUSP 30 ML UDCUP PO PRN (22:52)
[2017-10-01] MEDS: NORMAL SALINE 1000 ML 1,000 ML IV PRN ×3 (02:07→22:49)
[2017-10-01 04:35] LABS: HEMOGLOBIN 10.3 g/dL (12.0-15.5); MEAN CORPUSCULAR HEMOGLOBIN 23.4 pg (27.0-33.4); MEAN CORPUSCULAR HGB CONC 32.1 g/dL (32.0-36.0); MEAN CORPUSCULAR VOLUME 73 fl (80-97); PLATELET COUNT 213 10^3/uL (150-450); RED BLOOD COUNT 4.38 10^6/uL (3.72-5.28); RED CELL DISTRIBUTION WIDTH 17.9 % (11.5-14.0); WHITE BLOOD COUNT 17.9 10^3/uL (4.0-10.5)
[2017-10-01] MEDS: CEFTRIAXONE SODIUM 1,000 MG in DEXTROSE 5%-WATER 50 ML IV SCH ×2 (05:17→18:18)
[2017-10-01] MEDS: INSULIN LISPRO 100 UNIT/ML 3 ML VIAL SUBCUT PRN ×2 (11:09→14:00)
[2017-10-01] MEDS: AZITHROMYCIN 250 MG TABLET PO SCH (11:10)
[2017-10-01] MEDS: OXYCODONE-ACETAMINOPHEN 5-325 MG TABLET PO PRN ×2 (14:01→22:44)
--- NOTE | 2017-10-01 15:42 | PDOC PROGRESS REPORT ---
Subjective Progress Note for:: 10/01/17 Subjective:: Ms. Mart is a 36-year-old female who was admitted to the ICU for sepsis secondary to acute pyelonephritis. Patient was noted to have right-sided hydronephrosis secondary to a distal ureteral stone. She went for a right ureteral stent placement on 09/29. She was also found to have a right sided pneumonia. No acute event overnight. She is tolerating diet well. Right flank tenderness is improving. Occasionl mild hematuria but urine is clearing up per patient. No fever no chills. Reason For Visit: PYELONEPHRITIS,SEPSIS Physical Exam Vital Signs: Temp Pulse Resp BP Pulse Ox 98.3 F 105 H 18 146/80 H 98 10/01/17 12:00 10/01/17 12:00 10/01/17 12:00 10/01/17 12:00 10/01/17 14:34 Intake & Output 09/30/17 10/01/17 10/02/17 06:59 06:59 06:59 Intake Total 5020 2364 1000 Output Total 2300 1000 Balance 2720 1364 1000 Weight 352 lb 4.779 oz 351 lb 13.724 oz General appearance: PRESENT: no acute distress, well-developed, well-nourished Head exam: PRESENT: atraumatic, normocephalic Eye exam: PRESENT: conjunctiva pink Neck exam: PRESENT: carotid bruit Respiratory exam: PRESENT: clear to auscultation alma, rhonchi. ABSENT: rales, wheezes Cardiovascular exam: PRESENT: RRR. ABSENT: diastolic murmur, rubs, systolic murmur Pulses: PRESENT: normal dorsalis pedis pul GI/Abdominal exam: PRESENT: normal bowel sounds, soft. ABSENT: distended, guarding, mass, rebound, tenderness Rectal exam: PRESENT: deferred Neurological exam: PRESENT: alert, awake, oriented to person, oriented to place , oriented to time, oriented to situation, CN II-XII grossly intact. ABSENT: motor sensory deficit Results Laboratory Results: 10/01/17 03:40 09/30/17 03:55 10/01/17 03:40 WBC 17.9 H RBC 4.38 Hgb 10.3 L Hct 32.0 L MCV 73 L MCH 23.4 L MCHC 32.1 RDW 17.9 H Plt Count 213 09/29/17 01:22 Catheterized Urine Urine Culture - Final Klebsiella Pneumoniae 09/29/17 03:08 Blood Blood Culture - Final Klebsiella Pneumoniae Impressions: Abdomen/Pelvis CT 09/28/17 22:15 IMPRESSION: 1. A 0.4 cm right distal ureteral stone with low-grade obstruction. 2. Right pyelonephritis pattern. Differential diagnosis includes malignancy such as lymphoma. Recommend contrast renal CT surveillance including at 7-12 weeks following initiation of clinically warranted therapy. Retrograde Pyelogram 09/29/17 00:00 IMPRESSION: Intra procedural imaging and fluoro Chest X-Ray 09/30/17 00:00 IMPRESSION: Confluent opacity in the right medial lung base -cardiomediastinal silhouette, possible airspace disease. Follow-up recommended. Assessment & Plan - Diagnosis (1) Sepsis Qualifiers: Sepsis type: sepsis due to unspecified organism Qualified Code(s): A41.9 - Sepsis, unspecified organism Is this a current diagnosis for this admission?: Yes Plan: Patient has sepsis secondary to acute pyelonephritis. Lactic acid has normalized. Urine culture grew Klebsiella which is sensitive to ceftriaxone. Blood culture grew the same. Continue ceftriaxone. (2) Pyelonephritis Is this a current diagnosis for this admission?: Yes Plan: Continue antibiotics. WBC is slightly trending down. Patient's right flank tenderness is improving. (3) Hydronephrosis due to obstruction of ureter Is this a current diagnosis for this admission?: Yes Plan: Patient is status post right ureteral stent placement for distal ureteral stone. (4) Obesity Is this a current diagnosis for this admission?: Yes Plan: Patient has obesity secondary to excess caloric intake. Counseled on weight loss and dietary modification. (5) Community acquired pneumonia Is this a current diagnosis for this admission?: Yes Plan: Continue azithromycin and Rocephin. (6) Diabetes mellitus Qualifiers: Diabetes mellitus type: other specified (including KATHY) Is this a current diagnosis for this admission?: Yes Plan: Patient's A1c came back at 11.6 patient. She is a newly diagnosed diabetic. Noted sugar readings overnight. Will increase Lantus to 20 units at bedtime. Continue sliding scale. We will also discharge patient on metformin. (7) Sleep apnea in adult Is this a current diagnosis for this admission?: Yes Plan: Patient has no previous diagnosis of sleep apnea. She does snore and does occasionally desaturate while sleeping. She will need outpatient sleep study. - Time Time Spent with patient: 25-34 minutes
[2017-10-01] MEDS: MAG HYDROX/AL HYDROX/SIMETH SUSP 30 ML UDCUP PO PRN (16:05)
[2017-10-01] MEDS ORDERED: DEXTROSE 40% GEL 15 GM TUBE PO PRN ×2 (18:54)
[2017-10-01] MEDS ORDERED: GLUCAGON,HUMAN RECOMB 1 MG INJ IM PRN (18:54)
[2017-10-01] MEDS ORDERED: DEXTROSE 50%-WATER 25 GM/50 ML DISP.SYRIN IV PRN ×2 (18:54)
[2017-10-01] MEDS ORDERED: BISACODYL 10 MG SUPP.RECT PR ONE (20:04)
[2017-10-01] MEDS ORDERED: INSULIN GLARGINE,HUM.REC.ANLOG 300 UNIT/3 ML INSULN.PEN SUBCUT SCH (22:00)
[2017-10-02] MEDS: NORMAL SALINE 1000 ML 1,000 ML IV PRN (05:16)
[2017-10-02] MEDS: CEFTRIAXONE SODIUM 1,000 MG in DEXTROSE 5%-WATER 50 ML IV SCH (05:16)
[2017-10-02 08:02] VITALS: BP 139/80
[2017-10-02] MEDS: INSULIN REG, HUMAN 100 UNIT/ML 3 ML VIAL (PYX) SUBCUT SCH ×2 (09:00→12:23)
[2017-10-02] MEDS: AZITHROMYCIN 250 MG TABLET PO SCH (09:32)
[2017-10-02] MEDS ORDERED: INSULIN REG, HUMAN 100 UNIT/ML 3 ML VIAL (PYX) SUBCUT SCH (10:00)
--- NOTE | 2017-10-02 11:55 | PDOC DISCHARGE SUMMARY ---
General - Admit/Disc Date/PCP Admission Date/Primary Care Provider: 09/29/17 00:32 Discharge Date: 10/02/17 - Discharge Diagnosis (1) Sepsis Is this a current diagnosis for this admission?: Yes (2) Pyelonephritis Is this a current diagnosis for this admission?: Yes (3) Hydronephrosis due to obstruction of ureter Is this a current diagnosis for this admission?: Yes (4) Obesity Is this a current diagnosis for this admission?: Yes (5) Community acquired pneumonia Is this a current diagnosis for this admission?: Yes (6) Diabetes mellitus Is this a current diagnosis for this admission?: Yes (7) Sleep apnea in adult Is this a current diagnosis for this admission?: Yes - Additional Information Discharge Diet: Diabetic Discharge Activity: Activity As Tolerated Prescriptions: Acetaminophen [Tylenol 325 mg Tablet] 650 mg PO Q6HP PRN 3 Days #12 tablet PRN Reason: Ciprofloxacin HCl [Cipro 750 mg Tablet] 750 mg PO BID 10 Days #20 tablet Insulin Glargine,Hum.rec.anlog [Lantus Insulin 100 Unit/mL] 20 unit SUBCUT QHS # 4 insuln.pen Insulin Regular, Human [Humulin R (Pyxis) Insulin 100 Unit/ml 3Ml] 4 unit SUBCUT MEALS #10 ml Metformin HCl [Glucophage 500 mg Tablet] 500 mg PO BIDACBS #60 tab Home Medications: Acetaminophen [Tylenol 325 mg Tablet] 650 mg PO Q6HP PRN 3 Days #12 tablet 10/02 Ciprofloxacin HCl [Cipro 750 mg Tablet] 750 mg PO BID 10 Days #20 tablet Insulin Glargine,Hum.rec.anlog [Lantus Insulin 100 Unit/mL] 20 unit SUBCUT QHS # 4 insuln.pen 10/02/17 Insulin Regular, Human [Humulin R (Pyxis) Insulin 100 Unit/ml 3Ml] 4 unit SUBCUT MEALS #10 ml 10/02/17 Metformin HCl [Glucophage 500 mg Tablet] 500 mg PO BIDACBS #60 tab 10/02/17 History of Present Illness History of Present Illness: MELINA CARDENAS is a 36 year old female with past medical history of obesity who does not see PCP presents to the emergency room with fever and right lower quadrant abdominal pain for 2 days. Patient reports dysuria without hematuria. Patient denies nausea vomiting or chest pain or shortness of breath. Patient denies recent sick contacts or travel. On arrival to emergency room she was febrile with tachycardia however blood pressure was stable. Her laboratory workup showed white count of 20,000. Her blood glucose was 322. Lactic acid is 2.6. Urinalysis shows UTI. CT abdomen done which showed right distal ureteric stone with obstruction and hydronephrosis along with changes of pyelonephritis. Patient was taken to the OR by urologist and had ureteric stent placed. Patient was referred to hospital service for admission. Hospital Course Hospital Course: Ms. Dalton is a 36-year-old female with no prior past medical history who was admitted with sepsis and acute pyelonephritis. Patient was noted to have a right-sided ureteral stone. She promptly underwent urology evaluation and ureteral stent placement. Patient was started on broad-spectrum IV antibiotics initially. Blood cultures came back positive for Klebsiella pneumoniae 2/2 bottles. Her urinalysis also came back for Klebsiella pneumoniae. Azithromycin was also added for a right-sided infiltrate suggestive of pneumonia. Patient's blood sugars were running high up to the 300s and 400s. She does not have a previous diagnosis of diabetes mellitus. An A1c was checked which came back elevated at 11.6. Patient was started on long-acting insulin. Her sugars were better controlled with Lantus 20 units at night and fixed dose Humulin R at 4 units 3 times daily. Patient will be sent home on 10 more days of ciprofloxacin for a total duration of antibiotic therapy of 14 days. She will still have to establish care with a new PCP and will follow up with urology as outpatient. Physical Exam Vital Signs: Temp Pulse Resp BP Pulse Ox 98.6 F 98 18 139/80 H 97 10/02/17 08:00 10/02/17 08:00 10/02/17 08:00 10/02/17 08:00 10/02/17 08:00 Intake & Output 10/01/17 10/02/17 10/03/17 06:59 06:59 06:59 Intake Total 2414 4638 Output Total 1000 Balance 1414 4638 Weight 351 lb 13.724 oz 358 lb 4.019 oz General appearance: PRESENT: no acute distress, well-developed, well-nourished Head exam: PRESENT: atraumatic, normocephalic Eye exam: PRESENT: conjunctiva pink, EOMI, PERRLA. ABSENT: scleral icterus Neck exam: ABSENT: carotid bruit, JVD, lymphadenopathy, thyromegaly Respiratory exam: PRESENT: clear to auscultation alma. ABSENT: rales, rhonchi, wheezes Cardiovascular exam: PRESENT: RRR. ABSENT: diastolic murmur, rubs, systolic murmur Pulses: PRESENT: normal dorsalis pedis pul Vascular exam: PRESENT: normal capillary refill GI/Abdominal exam: PRESENT: normal bowel sounds, soft. ABSENT: distended, guarding, mass, organolmegaly, rebound, tenderness Rectal exam: PRESENT: deferred Extremities exam: PRESENT: full ROM. ABSENT: calf tenderness, clubbing, pedal edema Psychiatric exam: PRESENT: appropriate affect, normal mood. ABSENT: homicidal ideation, suicidal ideation Skin exam: PRESENT: dry, intact, warm. ABSENT: cyanosis, rash Results Laboratory Results: 10/01/17 03:40 09/30/17 03:55 09/29/17 01:22 Catheterized Urine Urine Culture - Final Klebsiella Pneumoniae 09/29/17 03:08 Blood Blood Culture - Final Klebsiella Pneumoniae Impressions: Abdomen/Pelvis CT 09/28/17 22:15 IMPRESSION: 1. A 0.4 cm right distal ureteral stone with low-grade obstruction. 2. Right pyelonephritis pattern. Differential diagnosis includes malignancy such as lymphoma. Recommend contrast renal CT surveillance including at 7-12 weeks following initiation of clinically warranted therapy. Retrograde Pyelogram 09/29/17 00:00 IMPRESSION: Intra procedural imaging and fluoro Chest X-Ray 09/30/17 00:00 IMPRESSION: Confluent opacity in the right medial lung base -cardiomediastinal silhouette, possible airspace disease. Follow-up recommended. Qualifiers - * PATIENT BEING DISCHARGED WITH ANY OF THE FOLLOWING DIAGNOSIS: No
== END 2017-10-02 15:53 | disposition home or self-care (01) | DRG 871 ==
LOC: ER 20:37 → EH 09-29 00:32 → ICU 09-29 02:20 → 5 09-30 15:53
PROVIDERS: ADMIT Internal Medicine; ATTEND Internal Medicine
PROC: BT1DZZZ Fluoroscopy of Right Kidney, Ureter and Bladder (ICD-10-PCS; 2017-09-29)
PROC: 3E0F73Z Introduction of Anti-inflammatory into Respiratory Tract, Via Natural or Artificial Opening (ICD-10-PCS; 2017-09-29)
PROC: 0T768DZ Dilation of Right Ureter with Intraluminal Device, Via Natural or Artificial Opening Endoscopic (ICD-10-PCS; principal; 2017-09-29 01:25)
DX: A41.9 Sepsis, unspecified organism (principal); J18.9 Pneumonia, unspecified organism; N13.6 Pyonephrosis; Z68.43 Body mass index [BMI] 50.0-59.9, adult; G47.30 Sleep apnea, unspecified; B96.1 Klebsiella pneumoniae [K. pneumoniae] as the cause of diseases classified elsewhere; I10 Essential (primary) hypertension; F17.210 Nicotine dependence, cigarettes, uncomplicated; E11.65 Type 2 diabetes mellitus with hyperglycemia; E66.09 Other obesity due to excess calories; Z79.899 Other long term (current) drug therapy; Z79.4 Long term (current) use of insulin
CPT/HCPCS: 36415; 71045; 74177; 74420; 80053; 81001; 82803; 82962; 83036; 83605; 83690; 84703; 85025; 85027; 85610; 85730; 87040; 87077; 87086; 87088; 87186; 910; 93005; 93010; 94799; 96361; 96365; 96375; 99285; C1758; C1769; C2617; J0131; J0330; J0696; J1100; J1650; J1815; J2250; J2270; J2405; J2543; J2704; J2765; J3010; J3490; J7030

== ENCOUNTER 2017-12-29 15:10 | Inpatient (IN) | payer SELFPAY ==
[2017-12-29] MEDS ORDERED: NORMAL SALINE 1000 ML 1,000 ML IV ONE ×2 (16:03→21:00)
[2017-12-29] MEDS ORDERED: FENTANYL CITRATE INJ/PF 100 MCG/2 ML AMPUL IV ONE ×2 (16:03→20:46)
[2017-12-29] MEDS ORDERED: ONDANSETRON HCL INJ/PF 4 MG/2 ML SDV IV ONE (16:04)
--- NOTE | 2017-12-29 16:06 | ER Document Report ---
ED General - General Chief Complaint: Abdominal Pain Stated Complaint: RIGHT SIDE PAIN Time Seen by Provider: 12/29/17 15:52 Mode of Arrival: Ambulatory Information source: Patient Notes: 37-year-old female presents emergency department complaints of right-sided abdominal pain. She describes it as a dull aching sensation that is been present for the last 3 days. She states that when she urinates she has a sharp pain on the right side. Patient states that she has a history of kidney stones. She states that in September she was diagnosed with pyelonephritis and admitted to the hospital. Patient states that she was followed by urology and had to have a stent placed. Patient states that she began having fever, nausea , vomiting starting today. She states that her symptoms feel similar to her previous admission. I have greeted and performed a rapid initial assessment of this patient. A comprehensive ED assessment and evaluation of the patient, analysis of test results and completion of the medical decision making process will be conducted by additional ED providers. PHYSICAL EXAMINATION: GENERAL: Well-appearing, well-nourished and in no acute distress. HEAD: Atraumatic, normocephalic. EYES: Pupils equal round extraocular movements intact, conjunctiva are normal. ENT: Nares patent NECK: Normal range of motion LUNGS: No respiratory distress Musculoskeletal: Normal range of motion NEUROLOGICAL: Normal speech, normal gait. PSYCH: Normal mood, normal affect. SKIN: Warm, Dry, normal turgor, no rashes or lesions noted. TRAVEL OUTSIDE OF THE [place] IN LAST 30 DAYS: No - Related Data Allergies/Adverse Reactions: shrimp Allergy (Uncoded 12/29/17 15:14) Past Medical History - Social History Smoking Status: Current Every Day Smoker Chew tobacco use (# tins/day): No Frequency of alcohol use: Occasional Drug Abuse: None Family History: Reviewed & Not Pertinent Patient has suicidal ideation: No Patient has homicidal ideation: No - Past Medical History Cardiac Medical History: Reports: Hx Hypertension - takes no meds Endocrine Medical History: Reports: Hx Diabetes Mellitus Type 2 Renal/ Medical History: Denies: Hx Peritoneal Dialysis Past Surgical History: Reports: Hx Kidney (Renal Surgery) Physical Exam - Vital signs Vitals: Temp Pulse Resp BP Pulse Ox 100.2 F 120 H 20 145/91 H 98 12/29/17 15:42 12/29/17 15:42 12/29/17 15:42 12/29/17 15:42 12/29/17 15:42 Course - Vital Signs Vital signs: Temp Pulse Resp BP Pulse Ox 100.2 F 120 H 20 145/91 H 98 12/29/17 15:42 12/29/17 15:42 12/29/17 15:42 12/29/17 15:42 12/29/17 15:42
[2017-12-29 16:21] LABS: APPEARANCE,URINE CLOUDY; BILIRUBIN,URINE NEGATIVE (NEGATIVE); COLOR,URINE YELLOW; GLUCOSE, URINE NEGATIVE (NEGATIVE); KETONES,URINE NEGATIVE (NEGATIVE); LEUKOCYTE ESTERASE,URINE LARGE (NEGATIVE); NITRITE,URINE POSITIVE (NEGATIVE); PROTEIN,URINE 30 mg/dL (NEGATIVE); URINE SPECIFIC GRAVITY 1.011; UROBILINOGEN,URINE NEGATIVE mg/dL (<2.0)
[2017-12-29 16:58] LABS: HEMATOCRIT 26.1 % (36.0-47.0); HEMOGLOBIN 8.4 g/dL (12.0-15.5); MEAN CORPUSCULAR HEMOGLOBIN 21.4 pg (27.0-33.4); MEAN CORPUSCULAR HGB CONC 32.1 g/dL (32.0-36.0); MEAN CORPUSCULAR VOLUME 67 fl (80-97); PLATELET COUNT 620 10^3/uL (150-450); RED BLOOD COUNT 3.92 10^6/uL (3.72-5.28); RED CELL DISTRIBUTION WIDTH 20.1 % (11.5-14.0); WHITE BLOOD COUNT 20.9 10^3/uL (4.0-10.5)
[2017-12-29 17:15] LABS: ABSOLUTE LYMPHOCYTES# (MANUAL) 3.1 10^3/uL (0.5-4.7); ABSOLUTE MONOCYTES # (MANUAL) 0.8 10^3/uL (0.1-1.4); ABSOLUTE NEUTROPHILS# (MANUAL) 16.9 10^3/uL (1.7-8.2); ANISOCYTOSIS 2+; BAND NEUTROPHILS % (MANUAL) 1 % (3-5); BASOPHILS % (MANUAL) 0 % (0-2); EOSINOPHILS % (MANUAL) 0 % (0-6); LYMPHOCYTES % (MANUAL) 15 % (13-45); MONOCYTES % (MANUAL) 4 % (3-13); SEGMENTED NEUTROPHILS % (MAN) 80 % (42-78); TOTAL CELLS COUNTED 100; TOXIC VACUOLATION PRESENT
[2017-12-29 17:17] LABS: ALANINE AMINOTRANSFERASE 6 U/L (9-52); ALBUMIN 3.9 g/dL (3.5-5.0); ALKALINE PHOSPHATASE 69 U/L (38-126); ANION GAP 12 (5-19); ASPARTATE AMINO TRANSFERASE 14 U/L (14-36); BILIRUBIN,DIRECT 0.3 mg/dL (0.0-0.4); BILIRUBIN,TOTAL 0.9 mg/dL (0.2-1.3); BLOOD UREA NITROGEN 7 mg/dL (7-20); CALCIUM 9.3 mg/dL (8.4-10.2); CARBON DIOXIDE 28 mmol/L (22-30); CHLORIDE 98 mmol/L (98-107); GLUCOSE 133 mg/dL (75-110); HYPOCHROMASIA SLIGHT; OVALOCYTES SLIGHT; PLATELET COMMENT INCREASED; PLATELET LARGE PRESENT; POIKILOCYTOSIS SLIGHT; POLYCHROMASIA SLIGHT; POTASSIUM 4.2 mmol/L (3.6-5.0); SODIUM 138.2 mmol/L (137-145); TOTAL PROTEIN 8.6 g/dL (6.3-8.2)
--- NOTE | 2017-12-29 18:46 | RADIOLOGY REPORT (SQ) ---
EXAM DESCRIPTION: U/S ABDOMEN COMPLETE W/O DOP COMPLETED DATE/TIME: 12/29/2017 6:07 pm REASON FOR STUDY: RUQ pain. R flank pain. COMPARISON: 09/28/2017 TECHNIQUE: Dynamic and static grayscale images acquired of the abdomen and recorded on PACS. Scarletto berhane selected color Doppler and spectral images recorded. LIMITATIONS: Suboptimal exam due to patient's large body habitus. FINDINGS: PANCREAS: No masses. Visualized pancreatic duct normal caliber. LIVER: No obvious masses. Echotexture normal. LIVER VASCULATURE: Normal directional flow of the main portal vein. Hepatic veins are not visualized due to patient's body habitus and overlying bowel gas. GALLBLADDER: No stones. Normal wall thickness. No pericholecystic fluid. ULTRASOUND-DETECTED BIRD'S SIGN: Negative. INTRAHEPATIC DUCTS AND COMMON DUCT: CBD and intrahepatic ducts normal caliber. No filling defects. INFERIOR VENA CAVA: Normal flow. AORTA: No aneurysm. RIGHT KIDNEY: Normal size. Normal echogenicity. No solid or suspicious masses. Mild hydronephr osis. A stent is not visualized on this exam. No calcifications. LEFT KIDNEY: Normal size. Normal echogenicity. No solid or suspicious masses. No hydronephrosi s. No calcifications. SPLEEN: Normal size. No solid masses. PERITONEAL AND PLEURAL SPACES: No ascites or effusions. OTHER: No other significant finding. IMPRESSION: Suboptimal exam due to patient's body habitus. Mild right hydronephrosis. No nephrolit hiasis seen on this exam. TECHNICAL DOCUMENTATION: JOB ID: [id number] [employer]- All Rights Reserved Reading location - IP/workstation name: [email or web address]
[2017-12-29] MEDS ORDERED: CEFTRIAXONE 1 GM/D5W RTU 1 GM/50 ML RTUPB IV ONE (19:22)
--- NOTE | 2017-12-29 20:07 | RADIOLOGY REPORT (SQ) ---
EXAM DESCRIPTION: CT LTD RENAL STONE PROTOCOL ON COMPLETED DATE/TIME: 12/29/2017 7:37 pm REASON FOR STUDY: evaluate for stone COMPARISON: 09/28/2017 TECHNIQUE: CT scan of the abdomen and pelvis performed without intravenous or oral contrast. Images reviewed with lung, soft tissue, and bone windows. Reconstructed coronal and sagittal MPR images revi ewed. All images stored on PACS. All CT scanners at this facility use dose modulation, iterative reconstruction, and/or weight based d osing when appropriate to reduce radiation dose to as low as reasonably achievable (ALARA). [facility]: Dose Right [facility]: CareDose [facility]: Dose Right [facility]: Teradose 4D [facility]: [employer] RADIATION DOSE: CT Rad equipment meets quality standard of care and radiation dose reduction techniq ues were employed. CTDIvol: 19.2 mGy. DLP: 1111 mGy-cm.mGy. LIMITATIONS: None. FINDINGS: LOWER CHEST: Mild basilar subsegmental atelectasis in the right middle and lower lobes. NON-CONTRASTED LIVER, SPLEEN, ADRENALS: Evaluation limited by lack of IV contrast. No identified sign ificant masses. PANCREAS: No masses. No peripancreatic inflammatory changes. GALLBLADDER: No calcified stones. No inflammatory changes to suggest cholecystitis. RIGHT KIDNEY AND URETER: Mild right hydronephrosis and moderate perinephric fat stranding. Right Nep hroureteral stent is present. No additional calcified stones identified in the right kidney. LEFT KIDNEY AND URETER: No cysts identified. No solid masses. No calcified stones. No hydronephrosis or hydroureter. AORTA AND RETROPERITONEUM: No aneurysm. No retroperitoneal masses or adenopathy. BOWEL AND PERITONEAL CAVITY: No obvious masses or inflammatory changes. No free fluid. APPENDIX: Normal. PELVIS, BLADDER, AND ABDOMINAL WALL:4 mm calcified stone in the posterior lumen of the bladder. No fr ee fluid. BONES: No acute findings. OTHER: No other significant finding. IMPRESSION: Mild right hydronephrosis and moderate perinephric fat stranding, exclude infection clin ically. Right Nephroureteral stent is present. No additional calcified stones identified in the rig ht kidney. 4 mm calcified stone in the posterior lumen of the bladder. Mild basilar subsegmental atelectasis in the right middle and lower lobes. COMMENT: Urology follow-up recommended. TECHNICAL DOCUMENTATION: JOB ID: [id number] [place]-72 Quality ID # [id number]: Final reports with documentation of one or more dose reduction techniques (e.g., Au tomated exposure control, adjustment of the mA and/or kV according to patient size, use of iterative reconstruction technique) 2010 [employer]- All Rights Reserved Reading location - IP/workstation name: [email or web address]
[2017-12-29] MEDS ORDERED: ACETAMINOPHEN 325 MG TABLET PO ONE (21:00)
--- NOTE | 2017-12-29 21:14 | ER Document Report ---
ED GI/ - General Mode of Arrival: Ambulatory TRAVEL OUTSIDE OF THE [place] IN LAST 30 DAYS: No <RUSLAN BOWEN - Last Filed: 12/29/17 22:19> <MELINA NARVAEZ - Last Filed: 12/30/17 02:18> - General Chief Complaint: Abdominal Pain Stated Complaint: RIGHT SIDE PAIN Time Seen by Provider: 12/29/17 15:52 Notes: 37-year-old female who presents to the emergency department today with complaints of right-sided flank and abdominal pain. Patient has a history of an infected kidney stone and was admitted in September for this and had to have a stent placed. Patient states she never followed up with a urologist due to not having insurance. Patient states her pain began about 4 or 5 days ago in the right side of her abdomen. Patient states she has pain in the right abdomen and right flank when urinating. (RUSLAN BOWEN) - Related Data Allergies/Adverse Reactions: shrimp Allergy (Uncoded 12/29/17 15:14) Past Medical History - General Information source: Patient - Social History Smoking Status: Current Every Day Smoker Chew tobacco use (# tins/day): No Frequency of alcohol use: Occasional Drug Abuse: None Family History: Reviewed & Not Pertinent Patient has suicidal ideation: No Patient has homicidal ideation: No - Past Medical History Cardiac Medical History: Reports: Hx Hypertension - takes no meds Endocrine Medical History: Reports: Hx Diabetes Mellitus Type 2 Renal/ Medical History: Denies: Hx Peritoneal Dialysis Past Surgical History: Reports: Hx Kidney (Renal Surgery) <RUSLAN BOWEN - Last Filed: 12/29/17 22:19> Review of Systems - Review of Systems Genitourinary: See HPI, Flank pain - right <RUSLAN BOWEN - Last Filed: 12/29/17 22:19> Physical Exam - Vital signs Interpretation: Tachycardic, Febrile - General General appearance: Alert In distress: Mild - Respiratory Respiratory status: No respiratory distress Chest status: Nontender Breath sounds: Normal Chest palpation: Normal - Cardiovascular Rhythm: Regular - Abdominal Inspection: Normal Tenderness: Nontender - Back Back: Tender, CVA tenderness - R - Extremities General upper extremity: Normal inspection, Normal ROM General lower extremity: Normal inspection, Normal ROM - Neurological Neuro grossly intact: Yes Cognition: Normal Orientation: AAOx4 [place] Coma Scale Eye Opening: Spontaneous [place] Coma Scale Verbal: Oriented <MELINA NARVAEZ - Last Filed: 12/30/17 02:18> - Vital signs Vitals: Temp Pulse Resp BP Pulse Ox 100.2 F 120 H 20 145/91 H 98 12/29/17 15:42 12/29/17 15:42 12/29/17 15:42 12/29/17 15:42 12/29/17 15:42 Course - Laboratory Result Diagrams: 12/29/17 16:37 12/29/17 16:37 <JESSIRUSLAN - Last Filed: 12/29/17 22:19> - Laboratory Result Diagrams: 12/29/17 16:37 12/29/17 16:37 <MELINA NARVAEZ - Last Filed: 12/30/17 02:18> - Re-evaluation Re-evalutation: 12/29/17 22:19 Dr. Harding has accepted the patient for admission (RUSLAN BOWEN) Patient is a 37-year-old female who comes in complaining of flank pain. She is febrile, tachycardic, has a white count of 20.9. Patient had ureteral stent placement in September and appears to have pyelonephritis today with urine as source of infection. Patient was discussed with urology, Dr. Miller, at [facility] who does not feel that the patient is to be seen by urology inpatient. Recommend fluids, antibiotics, and follow-up with urology outpatient. Patient was then admitted to the hospital service. Patient is agreeable to this plan. She had fluids and antibiotics initiated with culture sent. Received call back from urology at [facility], Dr. Oglesby, who stated that the patient did need to have a contrasted study to look for obstruction or extravasation of contrast near stent. CT abdomen pelvis with contrast was performed which is not showing obstruction or extravasation of contrast. Spoke with Dr. Oglesby. Recommends fluids and antibiotics. No emergent intervention needed. Patient was discussed again with the hospitalist and the recommendation from urology being that the patient does not need emergent intervention from urology and can stay at this institution for fluids, antibiotics, management of her infection. Patient is agreeable to this plan and grateful for care. (MELINA NARVAEZ ) - Vital Signs Vital signs: Temp Pulse Resp BP Pulse Ox 99.4 F 120 H 24 H 124/69 96 12/29/17 22:03 12/29/17 15:42 12/29/17 23:11 12/29/17 23:01 12/29/17 23:11 - Laboratory Laboratory results interpreted by me: 12/29/17 12/29/17 12/29/17 15:35 16:37 16:37 WBC 20.9 H Hgb 8.4 L Hct 26.1 L MCV 67 L MCH 21.4 L RDW 20.1 H Plt Count 620 H Seg Neuts % (Manual) 80 H Band Neutrophils % 1 L Abs Neuts (Manual) 16.9 H Glucose 133 H ALT 6 L Total Protein 8.6 H Urine Protein 30 H Urine Blood MODERATE H Urine Nitrite POSITIVE H Ur Leukocyte Esterase LARGE H Critical Care Note - Critical Care Note Total time excluding time spent on procedures (mins): 60 - Evaluation and management of sepsis, pyelonephritis, consultation with multiple urologist, coordination of transfer, counseling of patient, multiple re-evaluations <MELINA NARVAEZ - Last Filed: 12/30/17 02:18> Discharge <RUSLAN BOWEN - Last Filed: 12/29/17 22:19> - [facility] Unit Admitted: [facility] <MELINA NARVAEZ - Last Filed: 12/30/17 02:18> - Discharge Clinical Impression: Pyelonephritis Sepsis Qualifiers: Sepsis type: sepsis due to unspecified organism Qualified Code(s): A41.9 - Sepsis, unspecified organism Condition: Stable Disposition: ADMITTED INPATIENT Scribe Attestation: 12/30/17 02:18 I personally performed the services described in the documentation, reviewed and edited the documentation which was dictated to the scribe in my presence, and it accurately records my words and actions. (MELINA NARVAEZ) Scribe Documentation - Scribe Written by Sylvester:: Sylvester Burgess, [id number] acting as scribe for :: Segun <RUSLAN BOWEN - Last Filed: 12/29/17 22:19>
[2017-12-30] MEDS ORDERED: PROMETHAZINE HCL INJ 25 MG/1 ML VIAL IV PRN (00:22)
[2017-12-30] MEDS ORDERED: PROMETHAZINE HCL 25 MG TABLET PO PRN (00:22)
[2017-12-30] MEDS ORDERED: MAG HYDROX/AL HYDROX/SIMETH SUSP 30 ML UDCUP PO PRN (00:22)
[2017-12-30] MEDS ORDERED: ACETAMINOPHEN 325 MG TABLET PO PRN (00:22)
[2017-12-30] MEDS: NORMAL SALINE 1000 ML 1,000 ML IV PRN (00:23)
[2017-12-30] MEDS: MORPHINE SULFATE 10 MG/ML INJ IV PRN ×2 (00:23→11:35)
[2017-12-30] MEDS ORDERED: DEXTROSE 40% GEL 15 GM TUBE PO PRN ×2 (00:33)
[2017-12-30] MEDS ORDERED: DEXTROSE 50%-WATER 25 GM/50 ML DISP.SYRIN IV PRN ×2 (00:33)
[2017-12-30] MEDS ORDERED: INSULIN LISPRO 100 UNIT/ML 3 ML VIAL SUBCUT PRN (00:33)
[2017-12-30] MEDS ORDERED: GLUCAGON,HUMAN RECOMB 1 MG INJ IM PRN (00:33)
--- NOTE | 2017-12-30 02:18 | RADIOLOGY REPORT (SQ) ---
CLINICAL DATA: 37-year-old female with right upper and right lower quadrant pain. TECHNICAL DATA: Axial CT imaging of the abdomen and pelvis was performed following the administration of intravenous contrast.. Sagittal and coronal reconstructed images were then performed. The CT study is performed according to ALARA (as low as reasonably achievable) or ALARA/IMAGE GENTLY, with automatic adjustment of mA and/or kV according to patient size. Comparison: Prior unenhanced CT abdomen and pelvis performed on 12/29/2017. FINDINGS: Lung bases: The lung bases are grossly clear. There is minimal bibasilar atelectasis and/or fibrosis similar when compared to the previous study. Liver: The liver is enlarged and measures 26 cm in craniocaudal dimension. No focal hepatic abnormalities are identified. Liver attenuation is within normal limits. Spleen:The spleen is normal is size, configuration and attenuation. Gallbladder and bile duct: The gallbladder is well distended and unremarkable. There is no biliary ductal dilatation. Pancreas: The pancreas is grossly normal in size and configuration. Adrenal Glands:The adrenal glands are normal in size and configuration. Kidneys:The kidneys are normal in size and configuration. Again demonstrated is mild right-sided hydronephrosis with perinephric inflammation and edema similar when compared to the prior study. There is a grossly stable right nephroureteral stent. There is no evidence of nephrolithiasis. No definite solid or cystic renal mass lesions are identified. Stomach:The stomach is grossly normal. There is no definite hiatal hernia. Bowel:The bowel gas pattern is non specific and non obstructive. Appendix: There is no CT evidence to suggest acute appendicitis. Free air:There is no evidence of free air. Free fluid: There is no evidence of free fluid. Vasculature: The aorta is normal in caliber and contour. The inferior vena cava is grossly unremarkable. Lymphadenopathy: No pathologic lymphadenopathy is identified. Bladder: The bladder is incompletely distended and smooth in contour. Again, there appears to be a 4 mm calcification in the posterior dependent bladder just to the left of midline. Reproductive: The uterus is grossly within normal limits. Bones: No acute osseous abnormalities are identified. Soft tissues: No focal soft tissue abnormalities are identified. IMPRESSION: 1. Overall, no significant change when compared to the prior study. There is persistent mild right-sided hydronephrosis and perinephric inflammation and edema possibly due to infectious or inflammatory changes. Incomplete stenosis of the nephroureteral stent is also a consideration. 2. Grossly stable 4 mm calcification in the posterior dependent bladder just to the left of midline. 3. Hepatomegaly. 4. Fibrosis and/or atelectasis in the lung bases.
--- NOTE | 2017-12-30 02:32 | PDOC H&P ---
History of Present Illness Admission Date/PCP: 12/29/17 23:10 Patient complains of: Right flank pain History of Present Illness: MELINA CARDENAS is a 37 year old female who comes to the emergency department complaining of right flank pain that started this week, the pain is radiated to the right abdomen and to the groin, today it was up to 10/10 intensity, sharp in nature. Symptoms are associated with frequency but denies dysuria or hematuria. Yesterday she had a temperature of 100.1 at home. Patient denies having frequent UTIs but she was admitted September with a right infected kidney stone and a stent was placed, she did not follow with urologist as an outpatient as she does not have insurance. Initial heart rate 122, respiratory rate 24, white blood cell count 21K, patient is a criteria for sepsis. In the ED given IV Rocephin and IV fluids. Prior urine culture growing Klebsiella pneumonia sensitive to Rocephin Past Medical History Cardiac Medical History: Reports: Hypertension - takes no meds Endocrine Medical History: Reports: Diabetes Mellitus Type 2 Past Surgical History Past Surgical History: Reports: Other - Right ureteral stent Social History Smoking Status: Current Every Day Smoker Frequency of Alcohol Use: None Hx Recreational Drug Use: No Hx Prescription Drug Abuse: No Family History Family History: Reviewed & Not Pertinent Parental Family History Reviewed: Yes Children Family History Reviewed: NA Sibling(s) Family History Reviewed.: NA Medication/Allergy Home Medications: Acetaminophen [Tylenol 325 mg Tablet] 650 mg PO Q6HP PRN 3 Days #12 tablet 10/02 Ciprofloxacin HCl [Cipro 750 mg Tablet] 750 mg PO BID 10 Days #20 tablet Insulin Glargine,Hum.rec.anlog [Lantus] 20 unit SQ QHS #1 vial 10/02/17 Insulin Regular, Human [Humulin R (Pyxis) Insulin 100 Unit/ml 3Ml] 4 unit SUBCUT MEALS #10 ml 10/02/17 Metformin HCl [Glucophage 500 mg Tablet] 500 mg PO BIDACBS #60 tab 10/02/17 Allergies/Adverse Reactions: shrimp Allergy (Uncoded 12/29/17 15:14) Review of Systems Review of Systems: As outlined in the HPI, others negative Physical Exam Vital Signs: Temp Pulse Resp BP Pulse Ox 99.4 F 120 H 24 H 124/69 96 12/29/17 22:03 12/29/17 15:42 12/29/17 23:11 12/29/17 23:01 12/29/17 23:11 Additional comments: General appearance: Well-developed, morbid obese, alert and cooperative, and appears to be in no acute distress Head: Normocephalic Eyes: PEERL, EOMI, vision is grossly intact. Ears: External auditory canal and tympanic membranes clear, hearing grossly intact. Nose: No nasal discharge. Throat: Oral cavity and pharynx normal. No inflammation, swelling, exudate or lesions. Neck: Neck supple, nontender without lymphadenopathy, masses or thyromegaly. Cardiac: Normal S1 and S2. No S3, S4 or murmurs. Rhythm is regular and tachycardic. There is no peripheral edema, cyanosis or pallor. Extremities are warm and well perfused. Capillary refill is less than 2 seconds. No carotid bruits. Lungs: Clear to auscultation and percussion without rales, rhonchi, wheezing or diminished breath sounds. Not using accessory muscles. Abdomen: Positive bowel sounds. Right moderate abdominal tenderness to palpation. No masses. Unable to evaluate for hepatosplenomegaly as per body habitus. Extremities: No significant deformity or joint abnormality. No edema. Peripheral pulses intact. No varicosities. Neurological: Cranial nerves II through XII grossly intact. Strength and sensation symmetric and intact throughout. Reflexes 2+ throughout. Skin: Skin normal color, texture and turgor with no lesions or eruptions, warm and dry. Psychiatric: The mental examination revealed the patient was oriented to person , place, and time. The patient was able to demonstrate good judgment on recent , without hallucinations, abnormal affect or abnormal behaviors. Results Laboratory Results: 12/29/17 12/29/17 12/29/17 15:35 15:35 16:37 WBC 20.9 H RBC 3.92 Hgb 8.4 L Hct 26.1 L MCV 67 L MCH 21.4 L MCHC 32.1 RDW 20.1 H Plt Count 620 H Total Counted 100 Seg Neuts % (Manual) 80 H Band Neutrophils % 1 L Lymphocytes % (Manual) 15 Monocytes % (Manual) 4 Basophils % (Manual) 0 Abs Neuts (Manual) 16.9 H Abs Lymphs (Manual) 3.1 Abs Monocytes (Manual) 0.8 Absolute Eos (Manual) 0.0 Abs Basophils (Manual) 0.0 Toxic Vacuolation PRESENT Polychromasia SLIGHT Hypochromasia SLIGHT Microcytosis 2+ Sodium Potassium Chloride Carbon Dioxide Anion Gap BUN Creatinine Est GFR ( Amer) Est GFR (Non-Af Amer) Glucose Lactic Acid Calcium Total Bilirubin Direct Bilirubin AST ALT Alkaline Phosphatase Total Protein Albumin Urine Color YELLOW Urine Appearance CLOUDY Urine pH 5.0 Ur Specific [place] 1.011 Urine Glucose (UA) NEGATIVE Urine Ketones NEGATIVE Urine Blood MODERATE H Urine Nitrite POSITIVE H Urine Bilirubin NEGATIVE Urine Urobilinogen NEGATIVE Ur Leukocyte Esterase LARGE H Urine WBC (Auto) >182 Urine RBC (Auto) 11 Urine Bacteria (Auto) 1+ Urine WBC Clumps MANY Squamous Epi Cells Auto 3 Urine Mucus (Auto) RARE Urine Ascorbic Acid NEGATIVE Urine HCG, Qual NEGATIVE 12/29/17 12/29/17 16:37 16:37 WBC RBC Hgb Hct MCV MCH MCHC RDW Plt Count Total Counted Seg Neuts % (Manual) Band Neutrophils % Lymphocytes % (Manual) Monocytes % (Manual) Basophils % (Manual) Abs Neuts (Manual) Abs Lymphs (Manual) Abs Monocytes (Manual) Absolute Eos (Manual) Abs Basophils (Manual) Toxic Vacuolation Polychromasia Hypochromasia Microcytosis Sodium 138.2 Potassium 4.2 Chloride 98 Carbon Dioxide 28 Anion Gap 12 BUN 7 Creatinine 0.61 Est GFR ( Amer) > 60 Est GFR (Non-Af Amer) > 60 Glucose 133 H Lactic Acid 0.7 Calcium 9.3 Total Bilirubin 0.9 Direct Bilirubin 0.3 AST 14 ALT 6 L Alkaline Phosphatase 69 Total Protein 8.6 H Albumin 3.9 Urine Color Urine Appearance Urine pH Ur Specific [place] Urine Glucose (UA) Urine Ketones Urine Blood Urine Nitrite Urine Bilirubin Urine Urobilinogen Ur Leukocyte Esterase Urine WBC (Auto) Urine RBC (Auto) Urine Bacteria (Auto) Urine WBC Clumps Squamous Epi Cells Auto Urine Mucus (Auto) Urine Ascorbic Acid Urine HCG, Qual Impressions: Abdomen Ultrasound 12/29/17 16:37 IMPRESSION: Suboptimal exam due to patient's body habitus. Mild right hydronephrosis. No nephrolithiasis seen on this exam. Limited or Localized CT 12/29/17 19:24 IMPRESSION: Mild right hydronephrosis and moderate perinephric fat stranding, exclude infection clinically. Right Nephroureteral stent is present. No additional calcified stones identified in the right kidney. 4 mm calcified stone in the posterior lumen of the bladder. Mild basilar subsegmental atelectasis in the right middle and lower lobes. Assessment & Plan - Diagnosis (1) Sepsis Qualifiers: Sepsis type: sepsis due to unspecified organism Qualified Code(s): A41.9 - Sepsis, unspecified organism Is this a current diagnosis for this admission?: Yes Plan: Patient meets the criteria with leukocytosis, tachycardia, tachypnea, focus of infection (2) Pyelonephritis Is this a current diagnosis for this admission?: Yes Plan: Patient comes with right flank pain, history of fever and positive urinalysis. Patient has a stent that has not be removed as the patient does not have insurance and could not go to the urologist as an outpatient. This infection could be probably related with the stent. Continue with IV Rocephin. Please follow blood and urine cultures. ED attending called [facility] spoke with urologist, unfortunately they do not have any bed. [facility] beds but urologist ask for a contrast CT to make sure the patient has no obstruction or extravasation. If negative patient does not need to be transferred. Urologist feel the patient can be treated with IV antibiotics and have the stent removed as an outpatient, unfortunately the patient does not have insurance and is less likely that she will go to follow-up as an outpatient. Kidney ultrasound shows right hydronephrosis and CT abdomen and pelvis shows mild right hydronephrosis with moderate perinephric fatty stranding and right nephroureteral stent. Patient has moderate blood in the urine and she is not having her menstrual period, I also noticed that her hemoglobin has dropped from 10.3 in September to 8.4 during this admission. Will repeat CBC in the morning. (3) Diabetes mellitus type 2 in obese Is this a current diagnosis for this admission?: Yes Plan: Metformin on hold, continue with Lantus and insulin regular. Accu-Cheks q. before meals and at bedtime, insulin lispro sliding scale and hypoglycemia protocol. (4) Hypertension Qualifiers: Hypertension type: essential hypertension Qualified Code(s): I10 - Essential (primary) hypertension Is this a current diagnosis for this admission?: Yes Plan: Blood pressure was slightly elevated, patient is not on any medication at home as she does not have insurance - Time Time Spent: 50 to 70 Minutes Anticipated discharge: Home - Inpatient Certification Based on my medical assessment, after consideration of the patient's comorbidities, presenting symptoms, or acuity I expect that the services needed warrant INPATIENT care.: Yes I certify that my determination is in accordance with my understanding of Medicare's requirements for reasonable and necessary INPATIENT services [42 CFR 412.3e].: Yes Medical Necessity: Risk of Complication if Not Cared For in Hospital - Plan Summary Plan Summary: Case discussed with patient, agrees with plan
[2017-12-30 05:28] LABS: ABSOLUTE BASOPHILS # (AUTO) 0.1 10^3/uL (0.0-0.2); ABSOLUTE LYMPHOCYTES (AUTO) 1.9 10^3/uL (0.5-4.7); ABSOLUTE MONOCYTES (AUTO) 1.3 10^3/uL (0.1-1.4); ABSOLUTE NEUT (AUTO) 12.1 10^3/uL (1.7-8.2); BASOPHILS % (AUTO) 0.6 % (0-2); EOSINOPHILS % (AUTO) 0.1 % (0-6); HEMATOCRIT 23.6 % (36.0-47.0); LYMPHOCYTES % (AUTO) 12.2 % (13-45); MEAN CORPUSCULAR HEMOGLOBIN 21.1 pg (27.0-33.4); MEAN CORPUSCULAR HGB CONC 31.8 g/dL (32.0-36.0); MEAN CORPUSCULAR VOLUME 66 fl (80-97); MONOCYTES % (AUTO) 8.5 % (3-13); PLATELET COUNT 530 10^3/uL (150-450); RED BLOOD COUNT 3.57 10^6/uL (3.72-5.28); RED CELL DISTRIBUTION WIDTH 19.7 % (11.5-14.0); SEGMENTED NEUTROPHILS % (AUTO) 78.6 % (42-78); TOTAL CELLS COUNTED % (AUTO) 100 %; WHITE BLOOD COUNT 15.5 10^3/uL (4.0-10.5)
[2017-12-30 05:36] LABS: HEMOGLOBIN 7.5 g/dL (12.0-15.5)
[2017-12-30 05:41] LABS: ANION GAP 10 (5-19); BLOOD UREA NITROGEN 7 mg/dL (7-20); CALCIUM 8.6 mg/dL (8.4-10.2); CARBON DIOXIDE 27 mmol/L (22-30); CHLORIDE 102 mmol/L (98-107); POTASSIUM 3.9 mmol/L (3.6-5.0)
[2017-12-30 05:47] LABS: GLUCOSE 106 mg/dL (75-110)
[2017-12-30] MEDS: INSULIN REG, HUMAN 100 UNIT/ML 3 ML VIAL (PYX) SUBCUT SCH ×3 (10:24→16:34)
[2017-12-30] MEDS: ENOXAPARIN SODIUM INJ 40 MG/0.4 ML DISP.SYRIN SUBCUT SCH (10:25)
[2017-12-30] MEDS ORDERED: DOCUSATE SODIUM 100 MG CAPSULE PO PRN (12:26)
--- NOTE | 2017-12-30 12:44 | PDOC PROGRESS REPORT ---
Subjective Progress Note for:: 12/30/17 Reason For Visit: MELINA CARDENAS is a 37 year old female past medical history of nephrolithiasis status post right stent placed on September 2017 here at [facility] when she was hospitalized for pyelonephritis due to Klebsiella pneumonia, sepsis, hydronephrosis. She also has history of obstructive sleep apnea, diabetes and morbid obesity. Upon discharge on September 2017 she was was asked to follow-up with urologist as outpatient for the removal of stent however she could not make a follow-up appointment for financial reasons. On 12/29/2017 she presented to ED complaining of severe, sharp, 10/10 right flank pain radiating to right groin associated with fever, urinary frequency and dark urine. ED she was found to have tachycardia, tachypnea severe leukocytosis. ED attending called [facility], [facility] spoke with urologist, unfortunately they do not have any bed. [facility] had beds but urologist ask to do for a CT abdomen with contrast to rule out any obstruction or extravasation if negative patient can be managed here at [place] with IV antibiotics and a stent to be removed as outpatient. Ultrasound showed right hydronephrosis CT abdomen showed right hydronephrosis with moderate perinephric fatty stranding and right ureteral stent. Patient also found to have anemia upon asking patient if she knew about her anemia she says she does not know about having any anemia but she has noticed that her urine is very dark and also she is suffering from heavy menstruation. Last menstrual period was 2 weeks ago. Denies any melena, hematochezia, hemoptysis, hematemesis. 12/30/2017. No acute events overnight patient is sitting comfortably in her bed does not to be in any acute distress very pleasant and cooperative with physical examination. Stating that her pain has improved since admission but complaining of constipation and dark urine. Denies any fever, chills, nausea, vomiting, diarrhea. Physical Exam Vital Signs: Temp Pulse Resp BP Pulse Ox 98.6 F 96 18 138/82 H 96 12/30/17 09:03 12/30/17 09:03 12/30/17 09:03 12/30/17 09:03 12/30/17 09:03 Intake & Output 12/29/17 12/30/17 12/31/17 06:59 06:59 06:59 Intake Total 300 Balance 300 Weight 146.6 kg General appearance: PRESENT: no acute distress, morbidly obese Head exam: PRESENT: atraumatic, normocephalic Respiratory exam: PRESENT: clear to auscultation alma. ABSENT: rales, rhonchi, wheezes Cardiovascular exam: PRESENT: RRR. ABSENT: diastolic murmur, rubs, systolic murmur GI/Abdominal exam: PRESENT: normal bowel sounds, soft. ABSENT: distended, guarding, mass, organolmegaly, rebound, tenderness Musculoskeletal exam: PRESENT: tenderness - Right CVA tenderness Neurological exam: PRESENT: alert, awake, oriented to person, oriented to place , oriented to time, oriented to situation, CN II-XII grossly intact. ABSENT: motor sensory deficit Skin exam: PRESENT: dry, intact, warm. ABSENT: cyanosis, rash Results Laboratory Results: 12/30/17 04:52 12/30/17 04:52 12/30/17 12/30/17 12/30/17 04:52 04:52 06:05 WBC 15.5 H RBC 3.57 L Hgb 7.5 L Hct 23.6 L MCV 66 L MCH 21.1 L MCHC 31.8 L RDW 19.7 H Plt Count 530 H Seg Neutrophils % 78.6 H Lymphocytes % 12.2 L Monocytes % 8.5 Eosinophils % 0.1 Basophils % 0.6 Absolute Neutrophils 12.1 H Absolute Lymphocytes 1.9 Absolute Monocytes 1.3 Absolute Eosinophils 0.0 Absolute Basophils 0.1 Sodium 139.0 Potassium 3.9 Chloride 102 Carbon Dioxide 27 Anion Gap 10 BUN 7 Creatinine 0.58 Est GFR ( Amer) > 60 Est GFR (Non-Af Amer) > 60 Glucose 106 Calcium 8.6 Blood Type A POSITIVE Antibody Screen NEGATIVE Impressions: Abdomen Ultrasound 12/29/17 16:37 IMPRESSION: Suboptimal exam due to patient's body habitus. Mild right hydronephrosis. No nephrolithiasis seen on this exam. Limited or Localized CT 12/29/17 19:24 IMPRESSION: Mild right hydronephrosis and moderate perinephric fat stranding, exclude infection clinically. Right Nephroureteral stent is present. No additional calcified stones identified in the right kidney. 4 mm calcified stone in the posterior lumen of the bladder. Mild basilar subsegmental atelectasis in the right middle and lower lobes. Abdomen/Pelvis CT 12/30/17 01:20 IMPRESSION: 1. Overall, no significant change when compared to the prior study. There is persistent mild right-sided hydronephrosis and perinephric inflammation and edema possibly due to infectious or inflammatory changes. Incomplete stenosis of the nephroureteral stent is also a consideration. 2. Grossly stable 4 mm calcification in the posterior dependent bladder just to the left of midline. 3. Hepatomegaly. 4. Fibrosis and/or atelectasis in the lung bases. Assessment & Plan - Diagnosis (1) Pyelonephritis Is this a current diagnosis for this admission?: Yes Plan: Positive CT and ultrasound finding. No obstruction or extravasation. Urine culture positive for negative rods nightly E. coli. Continue empiric antibiotics. Follow-up cultures. (2) Sepsis Qualifiers: Sepsis type: sepsis due to unspecified organism Qualified Code(s): A41.9 - Sepsis, unspecified organism Is this a current diagnosis for this admission?: Yes Plan: Secondary to pyelonephritis. Vitals improving. Urine culture positive gram- negative rods likely E. coli. Blood culture pending. Continue volume resuscitation guided by volume status. Continue empiric antibiotics. Follow- up cultures. (3) Diabetes mellitus type 2 in obese Is this a current diagnosis for this admission?: Yes Plan: Controlled. A1c from prior admission more than 11%. Long-acting insulin, Accu- Chek, pre-meal adjust dosage as needed. Diabetic diet (4) Hydronephrosis due to obstruction of ureter Is this a current diagnosis for this admission?: Yes Plan: Hydronephrosis. Status post right ureteral stent placement on September 2017. Fortunately neurology consult available here at [place] and patient has not been able to remove the stent due as outpatient due to financial reasons. jig worker consulted for any possible assistance. (5) Obesity Is this a current diagnosis for this admission?: Yes Plan: Morbid obesity. Possibly due to obstructive sleep apnea and diet. Outpatient nocturnal polysomnography. (6) Anemia Qualifiers: Anemia type: iron deficiency Iron deficiency anemia type: chronic blood loss Qualified Code(s): D50.0 - Iron deficiency anemia secondary to blood loss (chronic) Is this a current diagnosis for this admission?: Yes Plan: Microcytic. Possibly due to iron deficiency. Supposed 1 PRBC transfusion. Patient has history of hematuria and heavy menstrual bleeding. Obtain stool guaiac iron studies. Start on ferrous sulfate. Supportive transfusions. (7) Hematuria Is this a current diagnosis for this admission?: Yes Plan: Likely related to history of nephrolithiasis and recent urethral stent placement. Patient has to have ureteral stents removed unfortunately no urology consult available. Advised on outpatient follow-up. (8) Constipation Is this a current diagnosis for this admission?: Yes Plan: Started on bowel regimen
[2017-12-30 14:15] LABS: RETICULOCYTE COUNT (AUTO) 1.74 % (0.66-2.85)
[2017-12-30] MEDS: POLYETHYLENE GLYCOL 3350 POWDER 17 GM/1 PACKET PO SCH (15:14)
[2017-12-30 15:28] LABS: IRON(TIBC) 14.3 ug/dL (37-170)
[2017-12-30 16:33] LABS: FOLATE 7.93 ng/mL (>2.76)
[2017-12-30] MEDS: CEFTRIAXONE SODIUM 2,000 MG in DEXTROSE 5%-WATER 100 ML IV SCH (17:21)
[2017-12-30] MEDS ORDERED: CEFTRIAXONE 2 GM/D5W RTU 2 GM/50 ML RTUPB IV SCH (18:00)
[2017-12-30] MEDS: INSULIN GLARGINE,HUM.REC.ANLOG 1,000 UNIT/10 ML UNIT SUBCUT SCH (21:26)
[2017-12-31 05:09] LABS: ABSOLUTE BASOPHILS # (AUTO) 0.1 10^3/uL (0.0-0.2); ABSOLUTE LYMPHOCYTES (AUTO) 1.6 10^3/uL (0.5-4.7); ABSOLUTE MONOCYTES (AUTO) 0.9 10^3/uL (0.1-1.4); ABSOLUTE NEUT (AUTO) 8.5 10^3/uL (1.7-8.2); BASOPHILS % (AUTO) 0.6 % (0-2); EOSINOPHILS % (AUTO) 0.4 % (0-6); HEMATOCRIT 25.1 % (36.0-47.0); HEMOGLOBIN 8.3 g/dL (12.0-15.5); LYMPHOCYTES % (AUTO) 14.2 % (13-45); MEAN CORPUSCULAR HEMOGLOBIN 22.3 pg (27.0-33.4); MEAN CORPUSCULAR VOLUME 68 fl (80-97); MONOCYTES % (AUTO) 7.8 % (3-13); PLATELET COUNT 451 10^3/uL (150-450); RED BLOOD COUNT 3.71 10^6/uL (3.72-5.28); RED CELL DISTRIBUTION WIDTH 19.9 % (11.5-14.0); TOTAL CELLS COUNTED % (AUTO) 100 %
[2017-12-31 05:34] LABS: ALANINE AMINOTRANSFERASE 22 U/L (9-52); ALKALINE PHOSPHATASE 83 U/L (38-126); ANION GAP 10 (5-19); ASPARTATE AMINO TRANSFERASE 31 U/L (14-36); BILIRUBIN,DIRECT 0.3 mg/dL (0.0-0.4); BILIRUBIN,TOTAL 0.5 mg/dL (0.2-1.3); BLOOD UREA NITROGEN 7 mg/dL (7-20); CALCIUM 8.5 mg/dL (8.4-10.2); CARBON DIOXIDE 28 mmol/L (22-30); CHLORIDE 102 mmol/L (98-107); GLUCOSE 130 mg/dL (75-110); POTASSIUM 4.2 mmol/L (3.6-5.0); TOTAL PROTEIN 6.6 g/dL (6.3-8.2)
[2017-12-31] MEDS: NORMAL SALINE 1000 ML 1,000 ML IV PRN (06:17)
[2017-12-31] MEDS: INSULIN REG, HUMAN 100 UNIT/ML 3 ML VIAL (PYX) SUBCUT SCH ×3 (08:19→16:04)
[2017-12-31] MEDS: FERROUS SULFATE 325 MG TABLET PO SCH (09:14)
[2017-12-31] MEDS: POLYETHYLENE GLYCOL 3350 POWDER 17 GM/1 PACKET PO SCH (09:14)
[2017-12-31] MEDS: ENOXAPARIN SODIUM INJ 40 MG/0.4 ML DISP.SYRIN SUBCUT SCH (09:14)
[2017-12-31] MEDS: CEFTRIAXONE SODIUM 2,000 MG in DEXTROSE 5%-WATER 100 ML IV SCH (17:12)
[2017-12-31] MEDS ORDERED: NORMAL SALINE 1000 ML 1,000 ML IV PRN (18:52)
--- NOTE | 2017-12-31 20:07 | PDOC PROGRESS REPORT ---
Subjective Progress Note for:: 12/31/17 Subjective:: The patient is feeling much better. Her appetite is improved. Reason For Visit: SEPSIS WITH PYELONEPHRITIS Physical Exam Vital Signs: Temp Pulse Resp BP Pulse Ox 99.0 F 92 18 145/76 H 99 12/31/17 15:55 12/31/17 19:00 12/31/17 15:55 12/31/17 15:55 12/31/17 15:55 Intake & Output 12/30/17 12/31/17 01/01/18 06:59 06:59 05:59 Intake Total 2114 2281 Output Total 3150 1800 Balance -1036 481 Weight 146.6 kg 149.4 kg General appearance: PRESENT: no acute distress, cooperative, morbidly obese, well-developed Head exam: PRESENT: atraumatic, normocephalic Eye exam: PRESENT: conjunctiva pale. ABSENT: scleral icterus Ear exam: PRESENT: normal external ear exam Mouth exam: PRESENT: moist, neck supple Neck exam: PRESENT: full ROM. ABSENT: carotid bruit, JVD, lymphadenopathy Respiratory exam: PRESENT: clear to auscultation alma, symmetrical, unlabored. ABSENT: rales, rhonchi, wheezes Cardiovascular exam: PRESENT: RRR, +S1, +S2 GI/Abdominal exam: PRESENT: normal bowel sounds, soft. ABSENT: distended, tenderness Musculoskeletal exam: PRESENT: full ROM, normal inspection Neurological exam: PRESENT: alert, awake, oriented to person, oriented to place , oriented to time, oriented to situation Psychiatric exam: PRESENT: appropriate affect, normal mood. ABSENT: anxious Skin exam: PRESENT: dry, intact, warm. ABSENT: cyanosis, rash Results Laboratory Results: 12/31/17 04:28 12/31/17 04:28 12/31/17 12/31/17 12/31/17 04:28 04:28 04:28 WBC 11.0 H RBC 3.71 L Hgb 8.3 L Hct 25.1 L MCV 68 L MCH 22.3 L MCHC 33.0 RDW 19.9 H Plt Count 451 H Seg Neutrophils % 77.0 Lymphocytes % 14.2 Monocytes % 7.8 Eosinophils % 0.4 Basophils % 0.6 Absolute Neutrophils 8.5 H Absolute Lymphocytes 1.6 Absolute Monocytes 0.9 Absolute Eosinophils 0.0 Absolute Basophils 0.1 Sodium 140.0 Potassium 4.2 Chloride 102 Carbon Dioxide 28 Anion Gap 10 BUN 7 Creatinine 0.55 Est GFR ( Amer) > 60 Est GFR (Non-Af Amer) > 60 Glucose 130 H Calcium 8.5 Magnesium 1.9 Total Bilirubin 0.5 AST 31 ALT 22 Alkaline Phosphatase 83 Total Protein 6.6 Albumin 3.0 L Stool Occult Blood 12/31/17 13:55 WBC RBC Hgb Hct MCV MCH MCHC RDW Plt Count Seg Neutrophils % Lymphocytes % Monocytes % Eosinophils % Basophils % Absolute Neutrophils Absolute Lymphocytes Absolute Monocytes Absolute Eosinophils Absolute Basophils Sodium Potassium Chloride Carbon Dioxide Anion Gap BUN Creatinine Est GFR ( Amer) Est GFR (Non-Af Amer) Glucose Calcium Magnesium Total Bilirubin AST ALT Alkaline Phosphatase Total Protein Albumin Stool Occult Blood NEGATIVE Impressions: Abdomen Ultrasound 12/29/17 16:37 IMPRESSION: Suboptimal exam due to patient's body habitus. Mild right hydronephrosis. No nephrolithiasis seen on this exam. Limited or Localized CT 12/29/17 19:24 IMPRESSION: Mild right hydronephrosis and moderate perinephric fat stranding, exclude infection clinically. Right Nephroureteral stent is present. No additional calcified stones identified in the right kidney. 4 mm calcified stone in the posterior lumen of the bladder. Mild basilar subsegmental atelectasis in the right middle and lower lobes. Abdomen/Pelvis CT 12/30/17 01:20 IMPRESSION: 1. Overall, no significant change when compared to the prior study. There is persistent mild right-sided hydronephrosis and perinephric inflammation and edema possibly due to infectious or inflammatory changes. Incomplete stenosis of the nephroureteral stent is also a consideration. 2. Grossly stable 4 mm calcification in the posterior dependent bladder just to the left of midline. 3. Hepatomegaly. 4. Fibrosis and/or atelectasis in the lung bases. Assessment & Plan - Diagnosis (1) Pyelonephritis Is this a current diagnosis for this admission?: Yes Plan: The patient's urine culture grew Klebsiella pneumonia. It is sensitive to the quinolones as well as cephalosporins. This makes the patient amenable for outpatient therapy. She states that her symptoms are greatly improved. (2) Hematuria Is this a current diagnosis for this admission?: Yes (3) Hydronephrosis due to obstruction of ureter Is this a current diagnosis for this admission?: Yes Plan: The stent remains in place. The patient has no joey hematuria. Her hemoglobin in fact is improving. She does need to follow-up with urology and she will receive a prolonged course of antibiotic therapy. (4) Anemia Qualifiers: Anemia type: iron deficiency Iron deficiency anemia type: chronic blood loss Qualified Code(s): D50.0 - Iron deficiency anemia secondary to blood loss (chronic) Is this a current diagnosis for this admission?: Yes Plan: The patient's hemoglobin is improving. She did receive 1 unit of packed red blood cells and this seems of help. Her hemoglobin is up to 8.3. Stool for occult blood was negative. She will continue iron supplementation. (5) Diabetes mellitus type 2 in obese Is this a current diagnosis for this admission?: Yes Plan: Since admission the patient's Accu-Cheks have all been under 150. We will continue her Lantus dosing. Because of her Accu-Chek results she was not given her regular insulin dosing with meals. Some of this is likely due to dietary compliance while in the hospital. She will continue on the Lantus and likely utilize a sliding scale. - Time Time Spent with patient: 15-24 minutes Medications reviewed and adjusted accordingly: Yes
[2017-12-31] MEDS: INSULIN GLARGINE,HUM.REC.ANLOG 1,000 UNIT/10 ML UNIT SUBCUT SCH (21:08)
[2018-01-01 06:02] LABS: ABSOLUTE EOSINOPHILS # (AUTO) 0.1 10^3/uL (0.0-0.6); ABSOLUTE MONOCYTES (AUTO) 0.6 10^3/uL (0.1-1.4); ABSOLUTE NEUT (AUTO) 6.3 10^3/uL (1.7-8.2); BASOPHILS % (AUTO) 0.5 % (0-2); EOSINOPHILS % (AUTO) 1.2 % (0-6); HEMATOCRIT 26.3 % (36.0-47.0); HEMOGLOBIN 8.4 g/dL (12.0-15.5); LYMPHOCYTES % (AUTO) 22.1 % (13-45); MEAN CORPUSCULAR HEMOGLOBIN 21.6 pg (27.0-33.4); MEAN CORPUSCULAR VOLUME 68 fl (80-97); MONOCYTES % (AUTO) 6.5 % (3-13); PLATELET COUNT 550 10^3/uL (150-450); RED BLOOD COUNT 3.89 10^6/uL (3.72-5.28); RED CELL DISTRIBUTION WIDTH 20.6 % (11.5-14.0); SEGMENTED NEUTROPHILS % (AUTO) 69.7 % (42-78); TOTAL CELLS COUNTED % (AUTO) 100 %; WHITE BLOOD COUNT 9.1 10^3/uL (4.0-10.5)
[2018-01-01] MEDS: INSULIN REG, HUMAN 100 UNIT/ML 3 ML VIAL (PYX) SUBCUT SCH (07:55)
[2018-01-01] MEDS: ENOXAPARIN SODIUM INJ 40 MG/0.4 ML DISP.SYRIN SUBCUT SCH (09:30)
[2018-01-01] MEDS: FERROUS SULFATE 325 MG TABLET PO SCH (09:30)
[2018-01-01] MEDS: POLYETHYLENE GLYCOL 3350 POWDER 17 GM/1 PACKET PO SCH (09:30)
--- NOTE | 2018-01-01 09:50 | PDOC DISCHARGE SUMMARY ---
General - Admit/Disc Date/PCP Admission Date/Primary Care Provider: 12/29/17 23:10 Discharge Date: 01/01/18 - Discharge Diagnosis (1) Pyelonephritis Is this a current diagnosis for this admission?: Yes Summary: The patient had a positive urine culture for Klebsiella pneumonia. She had hydronephrosis with obstruction and a urinary stent was placed at [facility]. She does not have insurance and is unable to afford the outpatient follow-up visit for stent removal. With the stent in place she will have recurrent infections. She is trying to find resolution for this. Reviewing the sensitivity pattern we will give the patient cephalexin 500 mg twice daily for 2 weeks and hopefully she will be able to find intervention by that time. She does feel much better today. (2) Hematuria Is this a current diagnosis for this admission?: Yes Summary: Hematuria resolved. (3) Hydronephrosis due to obstruction of ureter Is this a current diagnosis for this admission?: Yes Summary: As noted above there is a stent in place that needs to be removed. Antibiotics as above. (4) Anemia Is this a current diagnosis for this admission?: Yes Summary: The patient's hemoglobin is improved after the transfusion of 1 unit of packed red blood cells. An anemia panel was performed. Her B12 and folate were normal. She does have significant iron deficiency. She certainly needs to continue oral iron supplement. It is stable without the hematuria. She should continue ferrous sulfate as well as considering a multivitamin. (5) Diabetes mellitus type 2 in obese Is this a current diagnosis for this admission?: Yes Summary: A long discussion about her diabetes. At home she checks her fingersticks regularly and is compliant with a diabetic diet. She reports that she in fact has not had insulin for some time and her fingerstick glucoses remain under 150 all of the time and usually close to 110-120. Unfortunately the acute infection caused a spike in her sugars. She does have regular insulin at home. I told her that she will likely need insulin for short time until the infection clears and she is able to continue with her diabetic diet. She does have regular insulin at home and we discussed dosing for fingerstick glucose is greater than 150. - Additional Information Discharge Diet: Cardiac, Diabetic Discharge Activity: Activity As Tolerated Prescriptions: Cephalexin [Cephalexin 500 MG Tablet] 500 mg PO BID #28 tablet Home Medications: Ibuprofen [Motrin 800 mg Tablet] 800 mg PO DAILYP PRN 12/30/17 Insulin Regular, Human [Novolin R] 4 unit IJ MEALS 12/30/17 Cephalexin [Cephalexin 500 MG Tablet] 500 mg PO BID #28 tablet 01/01/18 Ferrous Sulfate [Feosol 325 mg Tablet] 325 mg PO DAILY tablet 01/01/18 History of Present Illness History of Present Illness: MELINA CARDENAS is a 37 year old female who presented to [facility] on December 29, 2017. She had a urinary stent placed for hydronephrosis. She has had difficulty finding urology to remove the stent since she cannot afford an outpatient visit. She developed infection with a foreign body in place that had marked hematuria. She was admitted to the hospital and given IV hydration as well as intravenous antibiotics. She was given 1 unit of packed red blood cells and her hemoglobin responded and is now starting to increase on oral iron supplement. Hospital Course Hospital Course: The patient had a good hospital course. She did require transfusion of 1 unit of packed red blood cells as noted above. Because of the acute infection with Klebsiella her glucose levels were increased and required Lantus and sliding scale insulin. She does not have insurance and has been using regular insulin at home based on her fingerstick glucoses. The patient feels much better with IV fluids and IV antibiotics. She will be discharged with oral antibiotics based on the sensitivity pattern of the Klebsiella. She will continue to monitor her glucose closely. I did explain that she may very well need some regular insulin for short while until she gets back to her baseline. She is conscientious about checking her sugars. Physical Exam Vital Signs: Temp Pulse Resp BP Pulse Ox 98.9 F 90 18 155/76 H 100 01/01/18 07:47 01/01/18 07:47 01/01/18 07:47 01/01/18 07:47 01/01/18 07:47 Intake & Output 12/31/17 01/01/18 01/02/18 07:59 06:59 06:59 Intake Total Output Total Balance Weight General appearance: PRESENT: no acute distress, cooperative, morbidly obese Head exam: PRESENT: atraumatic, normocephalic Eye exam: PRESENT: conjunctiva pale, EOMI. ABSENT: scleral icterus Ear exam: PRESENT: normal external ear exam Mouth exam: PRESENT: moist, neck supple Neck exam: PRESENT: full ROM. ABSENT: carotid bruit, JVD Respiratory exam: PRESENT: clear to auscultation alma, symmetrical, unlabored. ABSENT: rales, rhonchi, wheezes Cardiovascular exam: PRESENT: RRR, +S1, +S2 GI/Abdominal exam: PRESENT: normal bowel sounds, soft. ABSENT: tenderness Extremities exam: PRESENT: other - Difficult to assess due to morbid obesity.. ABSENT: calf tenderness, joint swelling Neurological exam: PRESENT: alert, awake, oriented to person, oriented to place , oriented to time, oriented to situation, CN II-XII grossly intact Psychiatric exam: PRESENT: appropriate affect, normal mood Skin exam: PRESENT: dry, intact, warm. ABSENT: cyanosis, rash Results Laboratory Results: 01/01/18 05:08 12/31/17 04:28 12/31/17 01/01/18 13:55 05:08 WBC 9.1 RBC 3.89 Hgb 8.4 L Hct 26.3 L MCV 68 L MCH 21.6 L MCHC 32.0 RDW 20.6 H Plt Count 550 H Seg Neutrophils % 69.7 Lymphocytes % 22.1 Monocytes % 6.5 Eosinophils % 1.2 Basophils % 0.5 Absolute Neutrophils 6.3 Absolute Lymphocytes 2.0 Absolute Monocytes 0.6 Absolute Eosinophils 0.1 Absolute Basophils 0.0 Stool Occult Blood NEGATIVE Impressions: Abdomen Ultrasound 12/29/17 16:37 IMPRESSION: Suboptimal exam due to patient's body habitus. Mild right hydronephrosis. No nephrolithiasis seen on this exam. Limited or Localized CT 12/29/17 19:24 IMPRESSION: Mild right hydronephrosis and moderate perinephric fat stranding, exclude infection clinically. Right Nephroureteral stent is present. No additional calcified stones identified in the right kidney. 4 mm calcified stone in the posterior lumen of the bladder. Mild basilar subsegmental atelectasis in the right middle and lower lobes. Abdomen/Pelvis CT 12/30/17 01:20 IMPRESSION: 1. Overall, no significant change when compared to the prior study. There is persistent mild right-sided hydronephrosis and perinephric inflammation and edema possibly due to infectious or inflammatory changes. Incomplete stenosis of the nephroureteral stent is also a consideration. 2. Grossly stable 4 mm calcification in the posterior dependent bladder just to the left of midline. 3. Hepatomegaly. 4. Fibrosis and/or atelectasis in the lung bases. Qualifiers - * PATIENT BEING DISCHARGED WITH ANY OF THE FOLLOWING DIAGNOSIS: No Plan Discharge Plan: Arrange for stent removal Continue oral antibiotics as above Manage her diabetes with diet and regular insulin Continue iron supplement Time Spent: Greater than 30 Minutes
[2018-01-01 09:58] VITALS: BP 138/82
== END 2018-01-01 10:40 | disposition home or self-care (01) | DRG 872 ==
LOC: ER 15:10 → EH 23:10 → 3N 12-30 01:24
PROVIDERS: ADMIT Internal Medicine; ATTEND Internal Medicine
PROC: 30233N1 Transfusion of Nonautologous Red Blood Cells into Peripheral Vein, Percutaneous Approach (ICD-10-PCS; principal; 2017-12-30)
PROC: 3E02340 Introduction of Influenza Vaccine into Muscle, Percutaneous Approach (ICD-10-PCS; 2018-01-01)
DX: A41.9 Sepsis, unspecified organism (principal); N12 Tubulo-interstitial nephritis, not specified as acute or chronic; N13.6 Pyonephrosis; B96.1 Klebsiella pneumoniae [K. pneumoniae] as the cause of diseases classified elsewhere; R31.9 Hematuria, unspecified; E11.9 Type 2 diabetes mellitus without complications; F17.210 Nicotine dependence, cigarettes, uncomplicated; I10 Essential (primary) hypertension; E66.01 Morbid (severe) obesity due to excess calories; G47.33 Obstructive sleep apnea (adult) (pediatric); K59.00 Constipation, unspecified; D50.0 Iron deficiency anemia secondary to blood loss (chronic); R16.0 Hepatomegaly, not elsewhere classified; Z23 Encounter for immunization; Z79.899 Other long term (current) drug therapy; Z91.013 Allergy to seafood
CPT/HCPCS: 36415; 36430; 74177; 76380; 76700; 80048; 80053; 81001; 81025; 82272; 82607; 82728; 82746; 82962; 83540; 83550; 83605; 83735; 85025; 85045; 86850; 86900; 86901; 86920; 87040; 87086; 87088; 87186; 90686; 96361; 96365; 96375; 96376; 99291; J0696; J1650; J1815; J2270; J2405; J3010; J3490; J7030; P9016

== ENCOUNTER 2018-02-02 13:38 | Emergency (ER) | payer SELFPAY ==
[2018-02-02 13:44] VITALS: BP 157/98
--- NOTE | 2018-02-02 14:25 | ER Document Report ---
ED GI/ - General Chief Complaint: Flank Pain Stated Complaint: FLANK PAIN Time Seen by Provider: 02/02/18 14:11 Mode of Arrival: Ambulatory Information source: Patient Notes: History of Present Illness Time: [ ] Chief Complaint: [flank pain] [ ] History obtained from [patient] 37 years old female with a history of stent in the right ureter for the last 3-4 months. Had 2 rounds of IV antibiotics in hospital after that, presents today with right flank pain dysuria and frequency fever and chills. No nausea vomiting. Symptoms began: [today] Onset: [gradual] Timing: [intermittent] Quality: [``pain] Intensity: [severe] Location: [flank] Migration: [none] Radiation: [none] Mechanism: [none] Aggravating factors: [none] Relieving factors: [none] Denies significant traumatic injury Denies weakness, numbness, incontinence Denies IV drug use Denies trouble with urination Review of Systems All other systems negative as reviewed. CONSTITUTIONAL No fever. EYES No eye pain. ENT No URI symptoms, No sore throat, No ear pain. CARDIOVASCULAR No chest pain, No palpitations, No edema. RESPIRATORY No Cough, No SOB, No wheezing. GASTROINTESTINAL No abdominal pain, No diarrhea, No vomiting, No constipation, No melena, No rectal bleeding. GENITOURINARY No UTI symptoms, No bleeding. MUSCULOSKELETAL + flank pain. SKIN No Rash. NEUROLOGIC No Headache, No recent seizures, No paralysis, No parathesias. Physical Exam CONSTITUTIONAL Vital signs reviewed, uncomfortable, Alert and oriented X 3. Obesity HEAD Atraumatic, Normal cephalic. EYES No discharge from eyes, Sclera are not injected, Extraocular muscles intact, Conjunctiva are normal. ENT Ears normal to inspection, Nose examination normal, Oropharynx normal, Mucous membranes pink, moist, normal in color. NECK Normal ROM, No jugular venous distention, No meningeal signs, No carotid bruit. RESPIRATORY/CHEST Chest is non-tender, Breath sounds normal, No respiratory distress. CARDIOVASCULAR RRR, Heart sounds normal. ABDOMEN Abdomen is non-tender, No masses, Bowel sounds normal, No distension, No peritoneal signs. BACK Normal inspection. Right flank focal bony tenderness, right-sided CVA tenderness, no soft tissue tenderness, negative straight leg test bilaterally, bilateral 2+ knee deep tendon reflexes. UPPER EXTREMITY Inspection normal, No cyanosis/clubbing/edema, 2+ radial pulses. LOWER EXTREMITY Inspection normal, No cyanosis/clubbing/edema, 2+ femoral pulses. NEURO Motor exam normal, Sensory exam normal. SKIN Skin is warm and dry, No rash. PSYCHIATRIC Normal affect. TRAVEL OUTSIDE OF THE [place] IN LAST 30 DAYS: No - HPI Notes: 02/02/18 14:25 Dictated - Related Data Allergies/Adverse Reactions: shrimp Allergy (Uncoded 02/02/18 13:40) Past Medical History - Social History Smoking Status: Never Smoker Frequency of alcohol use: None Drug Abuse: None Lives with: Family Family History: Reviewed & Not Pertinent Patient has suicidal ideation: No Patient has homicidal ideation: No - Past Medical History Cardiac Medical History: Reports: Hx Hypertension - takes no meds Endocrine Medical History: Reports: Hx Diabetes Mellitus Type 2 Renal/ Medical History: Denies: Hx Peritoneal Dialysis Psychiatric Medical History: Denies: Hx Depression Past Surgical History: Reports: Hx Kidney (Renal Surgery) - stent placed in September 2017, Other - Right ureteral stent Review of Systems - Review of Systems Notes: Dictated Physical Exam - Vital signs Vitals: Temp Pulse Resp BP Pulse Ox 98.6 F 99 16 157/98 H 99 02/02/18 13:41 02/02/18 13:41 02/02/18 13:41 02/02/18 13:41 02/02/18 13:41 - Notes Notes: Dictated Course - Vital Signs Vital signs: Temp Pulse Resp BP Pulse Ox 98.6 F 99 16 157/98 H 99 02/02/18 13:41 02/02/18 13:41 02/02/18 13:41 02/02/18 13:41 02/02/18 13:41 - Laboratory Result Diagrams: 02/02/18 14:52 Laboratory results interpreted by me: 02/02/18 02/02/18 14:52 14:52 WBC 14.4 H Hgb 9.3 L Hct 29.0 L MCV 68 L MCH 21.6 L RDW 24.0 H Plt Count 627 H Absolute Neutrophils 11.1 H Urine Blood SMALL H Ur Leukocyte Esterase LARGE H Discharge - Discharge Clinical Impression: UTI (urinary tract infection) Qualifiers: Urinary tract infection type: site unspecified Hematuria presence: without hematuria Qualified Code(s): N39.0 - Urinary tract infection, site not specified Condition: Fair Disposition: HOME, SELF-CARE Instructions: Urinary Tract Infection ([facility]) Prescriptions: Cefuroxime Axetil [Ceftin 500 mg Tablet] 1 tab PO BID #20 tablet
[2018-02-02 15:17] LABS: APPEARANCE,URINE CLOUDY; BILIRUBIN,URINE NEGATIVE (NEGATIVE); COLOR,URINE YELLOW; GLUCOSE, URINE NEGATIVE (NEGATIVE); KETONES,URINE NEGATIVE (NEGATIVE); LEUKOCYTE ESTERASE,URINE LARGE (NEGATIVE); NITRITE,URINE NEGATIVE (NEGATIVE); PROTEIN,URINE NEGATIVE (NEGATIVE); URINE SPECIFIC GRAVITY 1.011; UROBILINOGEN,URINE NEGATIVE mg/dL (<2.0)
[2018-02-02 15:23] LABS: ABSOLUTE BASOPHILS # (AUTO) 0.1 10^3/uL (0.0-0.2); ABSOLUTE EOSINOPHILS # (AUTO) 0.3 10^3/uL (0.0-0.6); ABSOLUTE LYMPHOCYTES (AUTO) 2.2 10^3/uL (0.5-4.7); ABSOLUTE MONOCYTES (AUTO) 0.8 10^3/uL (0.1-1.4); ABSOLUTE NEUT (AUTO) 11.1 10^3/uL (1.7-8.2); BASOPHILS % (AUTO) 0.4 % (0-2); EOSINOPHILS % (AUTO) 1.9 % (0-6); HEMOGLOBIN 9.3 g/dL (12.0-15.5); MEAN CORPUSCULAR HEMOGLOBIN 21.6 pg (27.0-33.4); MEAN CORPUSCULAR VOLUME 68 fl (80-97); MONOCYTES % (AUTO) 5.6 % (3-13); PLATELET COUNT 627 10^3/uL (150-450); RED BLOOD COUNT 4.29 10^6/uL (3.72-5.28); SEGMENTED NEUTROPHILS % (AUTO) 77.1 % (42-78); TOTAL CELLS COUNTED % (AUTO) 100 %; WHITE BLOOD COUNT 14.4 10^3/uL (4.0-10.5)
[2018-02-02] MEDS ORDERED: CEFTRIAXONE INJ 1000 MG VIAL IM ONE (15:38)
[2018-02-02] MEDS ORDERED: LIDOCAINE 1% INJ (10 MG/ML) 10 ML MDV ONE (15:56)
== END 2018-02-02 16:02 | disposition home or self-care (01) ==
LOC: ER 13:38
DX: N39.0 Urinary tract infection, site not specified (principal); R50.9 Fever, unspecified; E11.9 Type 2 diabetes mellitus without complications
CPT/HCPCS: 99284; 96372; 36415; 85025; 81001; J0696